=== PATIENT | female | born 1985 | race Caucasian/White ===

== ENCOUNTER 2017-01-10 05:01 | Inpatient (IN) | payer BC ==
[2017-01-10] MEDS ORDERED: Terbutaline 1 MG/ML SDV SUBCUT PRN (05:16)
[2017-01-10] MEDS ORDERED: Nalbuphine 10 MG/1 ML Vial IVPUSH PRN (05:16)
[2017-01-10] MEDS ORDERED: Misoprostol 200 MCG Tab PO PRN (05:16)
[2017-01-10] MEDS ORDERED: Butorphanol 1 MG/ML SDV IVPUSH PRN (05:16)
[2017-01-10] MEDS ORDERED: Methylergonovine 0.2 MG/1 ML Amp IM PRN ×2 (05:16→17:04)
[2017-01-10] MEDS ORDERED: Lidocaine 1% 50 ML MDV INJECT PRN (05:16)
[2017-01-10] MEDS ORDERED: Carboprost Tromethamine 250 MCG/1 ML Amp IM PRN (05:16)
[2017-01-10] MEDS ORDERED: Sodium Chloride 0.9% 2.5 ML Syringe FLUSH PRN (05:16)
[2017-01-10] MEDS ORDERED: Water For Irrigation,Sterile 1,000 ML Container IRR PRN (05:16)
[2017-01-10] MEDS ORDERED: Sodium Chloride 0.9% 10 ML Syringe FLUSH PRN (05:16)
[2017-01-10] MEDS ORDERED: Hydrocortisone Sodium Succinate 100 MG/2 ML SDV IVPUSH PRN (05:20)
[2017-01-10] MEDS ORDERED: Ampicillin 2 GM in Sodium Chloride 0.9% 100 ML IV ONE (05:30)
[2017-01-10] MEDS ORDERED: Oxytocin/Lactated Ringers 30 UNIT/500 ML BAG IV SCH ×2 (05:30)
[2017-01-10] MEDS: Lactated Ringers 1,000 ML IV SCH ×3 (05:50→14:53)
[2017-01-10] MEDS ORDERED: Ampicillin 1 GM in Sodium Chloride 0.9% 50 ML IV SCH (09:30)
[2017-01-10] MEDS: Ampicillin 1 GM in Sodium Chloride 0.9% 50 ML IV SCH ×2 (11:42→15:37)
--- NOTE | 2017-01-10 14:04 | PCM.PREANE ---
Preanesthetic Assessment - Anesthesia/Transfusion/Family Hx Anesthesia History: Prior Anesthesia Without Reaction Transfusion History: No Prior Transfusion(s) - Review of Systems General: No Symptoms Pulmonary: No Symptoms Cardiovascular: No Symptoms Gastrointestinal: No symptoms Neurological: No Symptoms Other: Reports: None - Physical Assessment Height: 5 ft 4 in Weight: 72.575 kg ASA Class: 2 Mental Status: Alert & Oriented x3 Airway Class: Mallampati = 2 Dentition: Reports: Normal Dentition Thyro-Mental Finger Breadths: 3 Mouth Opening Finger Breadths: 3 ROM/Head Extension: Full Lungs: Clear to auscultation, Normal respiratory effort Cardiovascular: Regular Rate, Regular Rhythm - Lab Values: Laboratory Last Values WBC 10.35 K/uL (4.0-11.0) 01/10/17 05:40 RBC 3.84 M/uL (4.30-5.90) L 01/10/17 05:40 Hgb 12.4 g/dL (12.0-16.0) 01/10/17 05:40 Hct 36.4 % (36.0-46.0) 01/10/17 05:40 MCV 94.8 fL (80.0-98.0) 01/10/17 05:40 MCH 32.3 pg (27.0-32.0) H 01/10/17 05:40 MCHC 34.1 g/dL (31.0-37.0) 01/10/17 05:40 RDW Std Deviation 46.2 fl (28.0-62.0) 01/10/17 05:40 RDW Coeff of Mery 13 % (11.0-15.0) 01/10/17 05:40 Plt Count 194 K/uL (150-400) 01/10/17 05:40 MPV 10.50 fL (7.40-12.00) 01/10/17 05:40 Nucleated RBC % 0.0 /100WBC 01/10/17 05:40 Nucleated RBCs # 0 K/uL 01/10/17 05:40 Blood Type O POSITIVE 01/10/17 05:40 Antibody Screen NEGATIVE 01/10/17 05:40 Crossmatch See Detail 01/10/17 05:40 - Allergies Allergies/Adverse Reactions: Allergies Allergy/AdvReac Type Severity Reaction Status Date / Time soy Allergy Itching Verified 01/10/17 05:11 - Acknowledgements Anesthesia Type Planned: Epidural Pt an Appropriate Candidate for the Planned Anesthesia: Yes Alternatives and Risks of Anesthesia Discussed w Pt/Guardian: Yes Pt/Guardian Understands and Agrees with Anesthesia Plan: Yes PreAnesthesia Questionnaire HEENT History: Reports: None Cardiovascular History: Reports: None Respiratory History: Reports: Asthma Gastrointestinal History: Reports: Irritable bowel syndrome, Other (see below) Other Gastrointestinal History: digestive ulcers Genitourinary History: Reports: Pyelonephritis MURAL PAINTER History: Reports: , Spontaneous (Multiple) : 21 Para: 3 Musculoskeletal History: Reports: Fracture, Other (see below) Other Musculoskeletal History: bilateral foot and rib fracture Neurological History: Reports: None Psychiatric History: Reports: None Endocrine/Metabolic History: Reports: None 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 Immunologic History: Reports: Other (see below) Other Immunologic History: LUPUS Oncologic (Cancer) History: Reports: None Dermatologic History: Reports: Other (see below) Other Dermatologic History: rash from lupus on upper face and chest - Infectious Disease History Infectious Disease History: Reports: None - Past Surgical History Female Surgical History: Reports: D&C - Past Imaging History Past Imaging History: Reports: None - HOME MEDS Home Medications: Home Meds Albuterol [Ventolin HFA] 8 gm INH BID 01/10/17 [History] Fluticasone/Salmeterol [Advair Diskus 250-50] 1 puff INH BID 01/10/17 [History] Triamcinolone Acetonide [Triamcinolone Acetonide 0.1% Oint] 15 gm TOP BID [History] predniSONE [Prednisone] 5 mg PO BID 01/10/17 [History] - CURRENT (IN HOUSE) MEDS Current Meds: Current Medications Carboprost Tromethamine (Hemabate Ds) 250 mcg IM ASDIRECTED PRN PRN Reason: Post Hemorrhage Hydrocortisone Sodium Succinate (Solu-Cortef) 100 mg IVPUSH ONETIME PRN PRN Reason: Other Last Admin: 01/10/17 12:51 Dose: 100 mg Lactated Ringer's (Ringers, Lactated) 1,000 mls @ 150 mls/hr IV ASDIRECTED ELIZABETH Last Admin: 01/10/17 11:16 Dose: 150 mls/hr Oxytocin/Lactated Ringer's (Pitocin In Lr 30 Units/500 Ml) 30 unit in 500 mls @ 2 mls/hr IV TITRATE ELIZABETH; 2 MUNITS/MIN PRN Reason: Protocol Last Titration: 01/10/17 12:12 Dose: 18 munits/min, 18 mls/hr Ampicillin Sodium 1 gm/ Sodium (Chloride) 50 mls @ 100 mls/hr IV Q4H ELIZABETH Last Admin: 01/10/17 11:42 Dose: 100 mls/hr Lidocaine HCl (Xylocaine 1%) 50 ml INJECT .ONCE PRN PRN Reason: Laceration repair Methylergonovine Maleate (Methergine) 0.2 mg IM ASDIRECTED PRN PRN Reason: Post Hemorrhage Misoprostol (Cytotec) 200 mcg PO .ONCE PRN PRN Reason: Post Hemorrhage Sodium Chloride (Saline Flush) 10 ml FLUSH ASDIRECTED PRN PRN Reason: Keep Vein Open Sodium Chloride (Saline Flush) 2.5 ml FLUSH ASDIRECTED PRN PRN Reason: Keep Vein Open Sterile Water (Sterile Water For Irrigation) 1,000 ml IRR ASDIRECTED PRN PRN Reason: delivery Terbutaline Sulfate (Brethine) 0.25 mg SUBCUT ASDIRECTED PRN PRN Reason: Tacysystole Discontinued Medications Butorphanol Tartrate (Stadol) 1 mg IVPUSH Q1H PRN PRN Reason: Pain Stop: 01/10/17 06:17 Ampicillin Sodium 2 gm/ Sodium (Chloride) 100 mls @ 200 mls/hr IV ONETIME ONE Stop: 01/10/17 05:59 Last Admin: 01/10/17 07:36 Dose: 200 mls/hr Ampicillin Sodium 1 gm/ Sodium (Chloride) 50 mls @ 100 mls/hr IV Q4H ELIZABETH Oxytocin/Lactated Ringer's (Pitocin In Lr 30 Units/500 Ml) 30 unit in 500 mls @ 500 mls/hr IV TITRATE ELIZABETH PRN Reason: 500 MUNITS/MIN Stop: 01/10/17 06:29 Nalbuphine HCl (Nubain) 10 mg IVPUSH Q1H PRN PRN Reason: Pain (severe 7-10) Stop: 01/10/17 06:17
[2017-01-10] MEDS ORDERED: fentaNYL 100 MCG/2 ML SDV ONE (14:05)
[2017-01-10] MEDS ORDERED: Ropivacaine HCl/PF 100 ML ONE (14:05)
[2017-01-10] MEDS ORDERED: Docusate Sodium 100 MG Cap PO PRN (17:04)
[2017-01-10] MEDS ORDERED: oxyCODONE 5 MG Tab PO PRN (17:04)
[2017-01-10] MEDS ORDERED: Benzocaine/Menthol 20%-0.5% Spray 78 GM Cannister TOP PRN (17:04)
[2017-01-10] MEDS ORDERED: Bisacodyl 10 MG Supp RECTAL PRN (17:04)
[2017-01-10] MEDS ORDERED: Witch Hazel Medicated Pads 40/Jar TOP PRN (17:04)
[2017-01-10] MEDS ORDERED: Acetaminophen 500 MG Tab PO PRN (17:04)
[2017-01-10] MEDS ORDERED: Lanolin 100% Cream 7 GM Tube TOP PRN (17:04)
[2017-01-10] MEDS ORDERED: Albuterol 8 GM Inhaler INH PRN (21:00)
[2017-01-10] MEDS ORDERED: Triamcinolone Acetonide 0.1% Crm 15 GM Tube TOP PRN (21:00)
[2017-01-10] MEDS: predniSONE 5 MG Tab PO SCH (21:12)
--- NOTE | 2017-01-10 21:51 | OR ---
SURGEON: Cherelle Randolph M.D. DATE OF PROCEDURE: 01/10/2017 PREOPERATIVE DIAGNOSIS: A 39-week intrauterine with lupus, asthma, and group B strep positive, on chronic steroids. POSTOPERATIVE DIAGNOSIS: A 39-week intrauterine with lupus, asthma, and group B strep positive, on chronic steroids. PROCEDURE: Pitocin induction of labor, artificial rupture of membranes with group B strep prophylaxis. Term spontaneous vaginal delivery. Stress dose steroids. ANESTHESIA: Epidural. ESTIMATED BLOOD LOSS: Less than 300 mL. FINDINGS: Liveborn female, score 9 and 9, weighing 3300 g. Placenta spontaneous, Schultze intact, with 3 vessels. Perineum intact. COMPLICATIONS: None known. DISPOSITION: Mother and baby in LDRP in good condition. BRIEF COURSE: This is a 31-year-old female. She presents at 39 weeks' gestation having been monitored with weekly testing due to lupus. She is currently on prednisone 5 mg b.i.d. She is followed in conjunction with Perinatology as well as Rheumatology. Recommendation was to proceed with induction of labor at 39 weeks' gestation. Plan is to proceed with stress dose steroids. She was admitted to Labor and Delivery. Pitocin was initiated. Ampicillin was initiated for group B strep prophylaxis. After her 2nd dose of ampicillin, artificial rupture of membranes was performed. She was 3 cm, 50%, minus 2 station. At this point, 100 mg of hydrocortisone was given IV. She received an epidural for pain control. She progressed to complete. DESCRIPTION OF PROCEDURE: With the patient in dorsal lithotomy position, under adequate epidural analgesia, she pushed over a 10-minute time period to a 5+ station, at which time the head was delivered spontaneously and atraumatically over the perineum with support with subsequent delivery of the 's shoulders and body without any difficulty. The was bulb suctioned by nose and mouth, and after the cord had ceased to pulsate, it was doubly clamped and cut. The infant was a liveborn female, score 9 and 9, weighing 3300 g. Cord blood was collected for cord ABGs as well as routine cord blood sampling. The Pitocin was initiated after delivery of the infant to assist with delivery of the placenta which was delivered spontaneously, Schultze intact with 3 vessels. Upon inspection of the pelvis and perineum, there were no periurethral, vaginal sidewall, cervical, rectal, or perineal lacerations. EBL was less than 300 mL. There were no known complications. Sponge, needle, and instrument counts were correct. RALPH MARIE /[id number]
--- NOTE | 2017-01-10 23:56 | PCM48HPAN ---
Post Anesthesia Note - EVALUATION WITHIN 48HRS OF ANESTHETIC Vital Signs in Normal Range: Yes Patient Participated in Evaluation: Yes Respiratory Function Stable: Yes Airway Patent: Yes Cardiovascular Function Stable: Yes Hydration Status Stable: Yes Pain Control Satisfactory: Yes Nausea and Vomiting Control Satisfactory: Yes Mental Status Recovered: Yes - COMMENTS/OBSERVATIONS Free Text/Narrative:: +Vascular placement was noted on first attempt. Epidural was removed immediately prior to any dosing (only test dose was given). Currently pt stable without any apparent complications.
[2017-01-11] MEDS: Ibuprofen 800 MG Tab PO PRN ×3 (00:57→17:56)
--- NOTE | 2017-01-11 07:18 | PCM.PNPP ---
- General Info Date of Service: 01/11/17 Functional Status: Reports: pain controlled, tolerating diet, ambulating, urinating - Review of Systems General: Reports: No Symptoms HEENT: Reports: no symptoms Pulmonary: Reports: no symptoms Cardiovascular: Reports: No Symptoms Gastrointestinal: Reports: No symptoms Genitourinary: Reports: no symptoms Musculoskeletal: Reports: no symptoms Skin: Reports: no symptoms Neurological: Reports: No Symptoms Psychiatric: Reports: no symptoms - General Info Date of Service: 01/11/17 - Patient Data Vital Signs - most recent: Last Vital Signs Temp 36.9 C 01/11/17 05:17 Pulse 76 01/11/17 05:17 Resp 17 01/11/17 05:17 BP 119/62 01/11/17 05:17 Pulse Ox 98 01/11/17 05:17 Weight - most recent: 72.575 kg Lab Results - last 24 hrs: Laboratory Results - last 24 hr 01/10/17 01/10/17 01/10/17 Range/Units 05:40 05:40 05:40 Hgb (12.0-16.0) g/dL Hct (36.0-46.0) % Blood Type O POSITIVE Cancelled Antibody Screen NEGATIVE Cancelled Crossmatch See Detail See Detail 01/11/17 Range/Units 04:13 Hgb 11.5 L (12.0-16.0) g/dL Hct 33.8 L (36.0-46.0) % Blood Type Antibody Screen Crossmatch Med Orders - Current: Current Medications Acetaminophen (Tylenol Extra Strength) 1,000 mg PO Q4H PRN PRN Reason: Pain Benzocaine/Menthol (Dermoplast Pain Relief 20%-0.5% [place]) 78 gm TOP ASDIRECTED PRN PRN Reason: Perineal Comfort Measure Last Admin: 01/10/17 20:18 Dose: 1 canister Bisacodyl (Dulcolax) 10 mg RECTAL .ONCE PRN PRN Reason: Constipation Docusate Sodium (Colace) 100 mg PO BID PRN PRN Reason: Constipation Emollient Ointment (Lansinoh Hpa) 0 gm TOP ASDIRECTED PRN PRN Reason: Sore Nipples Ibuprofen (Motrin) 800 mg PO Q6H PRN PRN Reason: Pain Last Admin: 01/11/17 00:57 Dose: 800 mg Methylergonovine Maleate (Methergine) 0.2 mg IM .ONCE PRN PRN Reason: Excessive Vaginal Bleeding Non-Formulary Medication (Albuterol [Ventolin Hfa]) 8 gm INH BID ELIZABETH Non-Formulary Medication (Triamcinolone Acetonide) 15 gm TOP BID ELIZABETH Oxycodone HCl (Oxycodone) 5 mg PO Q2H PRN PRN Reason: Pain Prednisone (Prednisone) 5 mg PO BID [facility] Last Admin: 01/10/17 21:12 Dose: 5 mg Fluticasone/Salmeterol (Advair Diskus 250-50) 1 puff INH BID [facility] Last Admin: 01/10/17 21:12 Dose: Not Given Witch Caryl (Tucks) 1 pad TOP ASDIRECTED PRN PRN Reason: comfort care Last Admin: 01/10/17 20:17 Dose: 1 tub Discontinued Medications Butorphanol Tartrate (Stadol) 1 mg IVPUSH Q1H PRN PRN Reason: Pain Stop: 01/10/17 06:17 Carboprost Tromethamine (Hemabate Ds) 250 mcg IM ASDIRECTED PRN PRN Reason: Post Hemorrhage Fentanyl (Sublimaze) Confirm Administered Dose 100 mcg .ROUTE .STK-MED ONE Stop: 01/10/17 14:06 Last Admin: 01/10/17 19:58 Dose: Not Given Hydrocortisone Sodium Succinate (Solu-Cortef) 100 mg IVPUSH ONETIME PRN PRN Reason: Other Last Admin: 01/10/17 12:51 Dose: 100 mg Ampicillin Sodium 2 gm/ Sodium (Chloride) 100 mls @ 200 mls/hr IV ONETIME ONE Stop: 01/10/17 05:59 Last Admin: 01/10/17 07:36 Dose: 200 mls/hr Ampicillin Sodium 1 gm/ Sodium (Chloride) 50 mls @ 100 mls/hr IV Q4H [facility] Last Admin: 01/10/17 19:57 Dose: Not Given Lactated Ringer's (Ringers, Lactated) 1,000 mls @ 150 mls/hr IV ASDIRECTED [facility] Last Admin: 01/10/17 14:53 Dose: 150 mls/hr Oxytocin/Lactated Ringer's (Pitocin In Lr 30 Units/500 Ml) 30 unit in 500 mls @ 500 mls/hr IV TITRATE [facility] PRN Reason: 500 MUNITS/MIN Stop: 01/10/17 06:29 Last Admin: 01/10/17 19:56 Dose: Not Given Oxytocin/Lactated Ringer's (Pitocin In Lr 30 Units/500 Ml) 30 unit in 500 mls @ 2 mls/hr IV TITRATE ELIZABETH; 2 MUNITS/MIN PRN Reason: Protocol Last Titration: 01/10/17 16:47 Dose: 500 munits/min, 500 mls/hr Ampicillin Sodium 1 gm/ Sodium (Chloride) 50 mls @ 100 mls/hr IV Q4H ELIZABETH Last Admin: 01/10/17 15:37 Dose: 100 mls/hr Ropivacaine (Naropin 0.2%) Confirm Administered Dose 100 mls @ as directed .ROUTE .[facility]-MED ONE Stop: 01/10/17 14:06 Last Admin: 01/10/17 19:57 Dose: Not Given Lidocaine HCl (Xylocaine 1%) 50 ml INJECT .ONCE PRN PRN Reason: Laceration repair Methylergonovine Maleate (Methergine) 0.2 mg IM ASDIRECTED PRN PRN Reason: Post Hemorrhage Misoprostol (Cytotec) 200 mcg PO .ONCE PRN PRN Reason: Post Hemorrhage Nalbuphine HCl (Nubain) 10 mg IVPUSH Q1H PRN PRN Reason: Pain (severe 7-10) Stop: 01/10/17 06:17 Sodium Chloride (Saline Flush) 10 ml FLUSH ASDIRECTED PRN PRN Reason: Keep Vein Open Sodium Chloride (Saline Flush) 2.5 ml FLUSH ASDIRECTED PRN PRN Reason: Keep Vein Open Sterile Water (Sterile Water For Irrigation) 1,000 ml IRR ASDIRECTED PRN PRN Reason: delivery Terbutaline Sulfate (Brethine) 0.25 mg SUBCUT ASDIRECTED PRN PRN Reason: Tacysystole - Interaction Disposition, : Gregory in Room with Family Infant Feeding: Breastfed Infant; Nursed Well Support Person: Significant Other - Recovery Exam Fundal Tone: Firm Fundal Level: 1 Fingerbreadths Below Umbilicus Fundal Placement: Midline Lochia Amount: Scant Lochia Color: Rubra/Red Perineum Description: Intact, Minimal Bruising/Swelling - Exam General: alert, oriented HEENT: Pupils equal Neck: supple Abdomen: soft, no tenderness, no distension Extremities: no edema Skin: warm, dry, intact Neurological: no new focal deficit Psy/Mental Status: alert, normal affect, normal mood - Problem List & Annotations (1) Vaginal delivery SNOMED Code(s): 152202298 Code(s): O80 - ENCOUNTER FOR FULL-TERM UNCOMPLICATED DELIVERY Status: Acute Current Visit: Yes - Problem List Review Problem List Initiated/Reviewed/Updated: Yes - My Orders Last 24 Hours: My Active Orders 01/10/17 17:04 Patient Status [ADT] Routine May Shower [RC] ASDIRECTED Up ad Gely [RC] ASDIRECTED Vital Signs [RC] PER UNIT ROUTINE Acetaminophen [Tylenol Extra Strength] 1,000 mg PO Q4H PRN Benzocaine/Menthol [Dermoplast Pain Relief 20%-0.5% [place]] 78 gm TOP ASDIRECTED PRN Bisacodyl [Dulcolax] 10 mg RECTAL .ONCE PRN Docusate Sodium [Colace] 100 mg PO BID PRN Ibuprofen [Motrin] 800 mg PO Q6H PRN Lanolin [Lansinoh HPA] See Dose Instructions TOP ASDIRECTED PRN Methylergonovine [Methergine] 0.2 mg IM .ONCE PRN Witch Caryl [Tucks] 1 pad TOP ASDIRECTED PRN oxyCODONE 5 mg PO Q2H PRN Assess Lochia [WOMSER] Per Unit Routine Assess Uterine Involution [WOMSER] Per Unit Routine Peripheral IV Discontinue [OM.PC] Routine Resuscitation Status Routine 01/10/17 17:05 Perineal Care [OM.PC] Per Unit Routine 01/10/17 21:00 Albuterol [Ventolin HFA] 8 gm INH BID Fluticasone/Salmeterol [Advair Diskus 250-50] 1 puff INH BID Triamcinolone Acetonide 15 gm TOP BID predniSONE 5 mg PO BID 01/10/17 Dinner Regular Diet [DIET] - Assessment Assessment:: PPD#1 after , stable, minimal lochia, would like to go home later today. Reviewed dacrocystocele appears to be resolved, but she should notify pediatric provider to evaluate tear ducts. Copy of ultrasound provided. - Plan Plan:: Discharge instructions provided
[2017-01-11] MEDS: predniSONE 5 MG Tab PO SCH (08:18)
[2017-01-11 17:36] VITALS: BP 107/68
== END 2017-01-11 18:55 | disposition home or self-care (01) | DRG 560 ==
LOC: MW.OBCHECK 05:01 → MW.OB 05:01 → MW.OBCHECK 05:16 → MW.OB 05:16 → OBSVTOIN 16:44
PROVIDERS: ADMIT Obstetrics & Gynecology; ATTEND Obstetrics & Gynecology
PROC: 10E0XZZ Delivery of Products of Conception, External Approach (ICD-10-PCS; principal; 2017-01-10)
PROC: 10907ZC Drainage of Amniotic Fluid, Therapeutic from Products of Conception, Via Natural or Artificial Opening (ICD-10-PCS; 2017-01-10)
PROC: 3E033VJ Introduction of Other Hormone into Peripheral Vein, Percutaneous Approach (ICD-10-PCS; 2017-01-10)
DX: O80 Encounter for full-term uncomplicated delivery (principal); M32.9 Systemic lupus erythematosus, unspecified; J45.909 Unspecified asthma, uncomplicated; Z3A.39 39 weeks gestation of pregnancy; Z37.0 Single live birth; Z22.330 Carrier of Group B streptococcus; Z79.52 Long term (current) use of systemic steroids
CPT/HCPCS: 01967; 36415; 51703; 59025; 85014; 85018; 85027; 86850; 86900; 86901; 86902; 86920; 86921; 86922; A9270-GY; J0290; J1720; J7030; J7050; J7120

== ENCOUNTER 2017-03-15 21:05 | Emergency (ER) | payer BC ==
--- NOTE | 2017-03-15 21:42 | EDM.PDOC ---
ED HPI GENERAL MEDICAL PROBLEM - General Chief Complaint: TERRAZZO JOURNEYMAN Problem Stated Complaint: VAGINAL BLEEDING Time Seen by Provider: 03/15/17 21:40 - History of Present Illness INITIAL COMMENTS - FREE TEXT/NARRATIVE: HISTORY AND PHYSICAL: History of present illness: Patient is 31-year-old female is proximally 2 months presents with concern of vaginal bleeding spending excessive she's been using his upwards of 14 pads per day she is directed by the TERRAZZO JOURNEYMAN he did present to the emergency room. There is been no dizziness chest pain shortness breath or other concern Review of systems: As per history of present illness and below otherwise all systems reviewed and negative. Past medical history: As per history of present illness and as reviewed below otherwise noncontributory. Surgical history: As per history of present illness and as reviewed below otherwise noncontributory. Social history: No reported history of drug or alcohol abuse. Family history: As per history of present illness and as reviewed below otherwise noncontributory. Physical exam: HEENT: Atraumatic, normocephalic, pupils reactive, negative for conjunctival pallor or scleral icterus, mucous membranes moist, throat clear, neck supple, nontender, trachea midline. Lungs: Clear to auscultation, breath sounds equal bilaterally, chest nontender. Heart: S1S2, regular, negative for clicks, rubs, or JVD. Abdomen: Soft, nondistended, nontender. Negative for masses or hepatosplenomegaly. Negative for costovertebral tenderness. Pelvis: Stable nontender. Genitourinary: Deferred. Rectal: Deferred. Extremities: Atraumatic, negative for cords or calf pain. Neurovascular unremarkable. Neuro: Awake, alert, oriented. Cranial nerves II through XII unremarkable. Cerebellum unremarkable. Motor and sensory unremarkable throughout. Exam nonfocal. Diagnostics: CBC CMP PT/INR hCG Therapeutics: None Impression: #1 vaginal bleeding Definitive disposition and diagnosis as appropriate pending reevaluation and review of above. - Related Data Allergies Allergy/AdvReac Type Severity Reaction Status Date / Time soy Allergy Itching Verified 03/15/17 21:23 Home Meds: Home Meds Albuterol [Ventolin HFA] 8 gm INH BID 01/10/17 [History] Fluticasone/Salmeterol [Advair Diskus 250-50] 1 puff INH BID 01/10/17 [History] Triamcinolone Acetonide [Triamcinolone Acetonide 0.1% Oint] 15 gm TOP BID [History] predniSONE [Prednisone] 5 mg PO BID 01/10/17 [History] Past Medical History HEENT History: Reports: None Cardiovascular History: Reports: None Respiratory History: Reports: Asthma Gastrointestinal History: Reports: Irritable Bowel Syndrome, Other (See Below) Other Gastrointestinal History: digestive ulcers Genitourinary History: Reports: Pyelonephritis TERRAZZO JOURNEYMAN History: Reports: , Spontaneous Musculoskeletal History: Reports: Fracture, Other (See Below) Other Musculoskeletal History: bilateral foot and rib fracture Neurological History: Reports: None Psychiatric History: Reports: None Endocrine/Metabolic History: Reports: None 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 Immunologic History: Reports: Other (See Below) Other Immunologic History: LUPUS Oncologic (Cancer) History: Reports: None Dermatologic History: Reports: Other (See Below) Other Dermatologic History: rash from lupus on upper face and chest - Infectious Disease History Infectious Disease History: Reports: None - Past Surgical History Female Surgical History: Reports: D&C - Past Imaging History Past Imaging History: Reports: None Social & Family History - Family History Family Medical History: Noncontributory - Tobacco Use Smoking Status *Q: Never Smoker - Recreational Drug Use Recreational Drug Use: No ED ROS GENERAL - Review of Systems Review Of Systems: ROS reveals no pertinent complaints other than HPI. ED EXAM, GENERAL - Physical Exam Exam: See Below (See dictation) Course - Vital Signs Last Recorded V/S: Last Vital Signs Temp 36.4 C 03/15/17 21:30 Pulse 74 03/15/17 21:30 Resp 14 03/15/17 21:30 BP 126/76 03/15/17 21:30 Pulse Ox 98 03/15/17 21:30 - Orders/Labs/Meds Labs: Laboratory Tests 03/15/17 03/15/17 03/15/17 Range/Units 21:58 21:58 21:58 WBC 8.45 (4.0-11.0) K/uL RBC 4.35 (4.30-5.90) M/uL Hgb 13.8 (12.0-16.0) g/dL Hct 40.7 (36.0-46.0) % MCV 93.6 (80.0-98.0) fL MCH 31.7 (27.0-32.0) pg MCHC 33.9 (31.0-37.0) g/dL RDW Std Deviation 45.8 (28.0-62.0) fl RDW Coeff of Mery 13 (11.0-15.0) % Plt Count 207 (150-400) K/uL MPV 9.90 (7.40-12.00) fL Neut % (Auto) 68.8 (48.0-80.0) % Lymph % (Auto) 22.2 (16.0-40.0) % [place] % (Auto) 8.0 (0.0-15.0) % Eos % (Auto) 0.6 (0.0-7.0) % Baso % (Auto) 0.4 (0.0-1.5) % Neut # (Auto) 5.8 H (1.4-5.7) K/uL Lymph # (Auto) 1.9 (0.6-2.4) K/uL [place] # (Auto) 0.7 (0.0-0.8) K/uL Eos # (Auto) 0.1 (0.0-0.7) K/uL Baso # (Auto) 0.0 (0.0-0.1) K/uL Nucleated RBC % 0.0 /100WBC Nucleated RBCs # 0 K/uL INR 1.00 (0.86-1.11) Sodium 140 (136-146) mmol/L Potassium 4.1 (3.5-5.1) mmol/L Chloride 107 (98-110) mmol/L Carbon Dioxide 24 (21-31) mmol/L BUN 17 (6.0-23.0) mg/dL Creatinine 0.9 (0.6-1.5) mg/dL Est Cr Clr Drug Dosing 80.22 mL/min Estimated GFR (MDRD) > 60.0 ml/min Glucose 87 (60-110) mg/dL Calcium 9.3 (8.8-10.8) mg/dL Total Bilirubin 0.5 (0.1-1.5) mg/dL AST 20 (5-40) IU/L ALT 19 (8-54) IU/L Alkaline Phosphatase 74 (40-150) Total Protein 7.4 (6.0-8.0) g/dL Albumin 4.4 (3.5-5.0) g/dL Globulin 3.0 (2.0-3.5) g/dL Albumin/Globulin Ratio 1.5 (1.3-2.8) HCG, Qual (NEG) 03/15/17 Range/Units 21:58 WBC (4.0-11.0) K/uL RBC (4.30-5.90) M/uL Hgb (12.0-16.0) g/dL Hct (36.0-46.0) % MCV (80.0-98.0) fL MCH (27.0-32.0) pg MCHC (31.0-37.0) g/dL RDW Std Deviation (28.0-62.0) fl RDW Coeff of Mery (11.0-15.0) % Plt Count (150-400) K/uL MPV (7.40-12.00) fL Neut % (Auto) (48.0-80.0) % Lymph % (Auto) (16.0-40.0) % [place] % (Auto) (0.0-15.0) % Eos % (Auto) (0.0-7.0) % Baso % (Auto) (0.0-1.5) % Neut # (Auto) (1.4-5.7) K/uL Lymph # (Auto) (0.6-2.4) K/uL [place] # (Auto) (0.0-0.8) K/uL Eos # (Auto) (0.0-0.7) K/uL Baso # (Auto) (0.0-0.1) K/uL Nucleated RBC % /100WBC Nucleated RBCs # K/uL INR (0.86-1.11) Sodium (136-146) mmol/L Potassium (3.5-5.1) mmol/L Chloride (98-110) mmol/L Carbon Dioxide (21-31) mmol/L BUN (6.0-23.0) mg/dL Creatinine (0.6-1.5) mg/dL Est Cr Clr Drug Dosing mL/min Estimated GFR (MDRD) ml/min Glucose (60-110) mg/dL Calcium (8.8-10.8) mg/dL Total Bilirubin (0.1-1.5) mg/dL AST (5-40) IU/L ALT (8-54) IU/L Alkaline Phosphatase (40-150) Total Protein (6.0-8.0) g/dL Albumin (3.5-5.0) g/dL Globulin (2.0-3.5) g/dL Albumin/Globulin Ratio (1.3-2.8) HCG, Qual NEGATIVE (NEG) Departure - Departure Time of Disposition: 23:06 Disposition: Home, Self-Care 01 Condition: Good Clinical Impression: Vaginal bleeding - Discharge Information Forms: ED Department Discharge Additional Instructions: The following information is given to patients seen in the emergency department who are being discharged to home. This information is to outline your options for follow-up care. We provide all patients seen in our emergency department with a follow-up referral. The need for follow-up, as well as the timing and circumstances, are variable depending upon the specifics of your emergency department visit. If you don't have a primary care physician on staff, we will provide you with a referral. We always advise you to contact your personal physician following an emergency department visit to inform them of the circumstance of the visit and for follow-up with them and/or the need for any referrals to a consulting specialist. The emergency department will also refer you to a specialist when appropriate. This referral assures that you have the opportunity for followup care with a specialist. All of these measure are taken in an effort to provide you with optimal care, which includes your followup. Under all circumstances we always encourage you to contact your private physician who remains a resource for coordinating your care. When calling for followup care, please make the office aware that this follow-up is from your recent emergency room visit. If for any reason you are refused follow-up, please contact the [facility] emergency department at and asked to speak to the emergency department charge nurse. Follow-up TOXICOLOGY SUPERVISOR/private medical doctor 24-48 hours return as needed as discussed
[2017-03-15 22:25] LABS: CHLORIDE,CL 107 mmol/L (98-110); SODIUM,NA 140 mmol/L (136-146)
[2017-03-15 23:20] VITALS: BP 122/78
== END 2017-03-15 23:26 | disposition home or self-care (01) ==
LOC: MW.ED 21:05
DX: N93.9 Abnormal uterine and vaginal bleeding, unspecified (principal); J45.909 Unspecified asthma, uncomplicated; M32.9 Systemic lupus erythematosus, unspecified; Z91.018 Allergy to other foods
CPT/HCPCS: 36415; 80053; 84703; 85025; 85610; 99282; 99284

== ENCOUNTER 2018-01-10 09:47 | Day surgery (SDC) | payer MEDICAID ==
[~2018-01-10 09:47] MED LIST: Lactated Ringers 1,000 ML IV SCH; Sodium Chloride 0.9% 10 ML Syringe FLUSH PRN; Sodium Chloride 0.9% 2.5 ML Syringe FLUSH PRN
[2018-01-10] MEDS ORDERED: Lidocaine 2% 5 ML SDV ONE ×2 (11:41→11:44)
[2018-01-10] MEDS ORDERED: Propofol 200 MG/20 ML SDV ONE (11:41)
[2018-01-10] MEDS ORDERED: Midazolam 1 MG/ML 2 ML SDV ONE (11:41)
[2018-01-10] MEDS ORDERED: Ondansetron 4 MG/2 ML SDV ONE ×2 (11:41→11:44)
[2018-01-10] MEDS ORDERED: fentaNYL 250 MCG/5 ML SDV ONE (11:42)
== END 2018-01-10 10:50 | disposition home or self-care (01) ==
LOC: MW.SDS 09:47
PROVIDERS: ATTEND Obstetrics & Gynecology
DX: Z53.8 Procedure and treatment not carried out for other reasons (principal)
CPT/HCPCS: 36415; 85027; 86850; 86900; 86901; J2250; J2405; J2704; J3010; J7120

== ENCOUNTER 2018-01-13 10:42 | Day surgery (SDC) | payer MEDICAID ==
[~2018-01-13 10:42] MED LIST changes: -Lactated Ringers 1,000 ML IV SCH; +Lidocaine 2% 5 ML SDV ONE; +Midazolam 1 MG/ML 2 ML SDV ONE; +Propofol 200 MG/20 ML SDV ONE; -Sodium Chloride 0.9% 10 ML Syringe FLUSH PRN; -Sodium Chloride 0.9% 2.5 ML Syringe FLUSH PRN; +fentaNYL 100 MCG/2 ML SDV ONE
--- NOTE | 2018-01-13 11:35 | PCM.PREANE ---
Preanesthetic Assessment - Anesthesia/Transfusion/Family Hx Anesthesia History: Prior Anesthesia Without Reaction Family History of Anesthesia Reaction: No Transfusion History: No Prior Transfusion(s) - Review of Systems General: No Symptoms Pulmonary: No Symptoms Cardiovascular: No Symptoms Gastrointestinal: No Symptoms Neurological: No Symptoms - Physical Assessment NPO Status Date: 01/13/18 NPO Status Time: 06:00 O2 Sat by Pulse Oximetry: 97 Respiratory Rate: 16 Vital Signs: Last Vital Signs Temp 37.0 C 01/13/18 11:10 Pulse 55 L 01/13/18 11:10 Resp 16 01/13/18 11:10 BP 118/72 01/13/18 11:10 Pulse Ox 97 01/13/18 11:10 Height: 1.68 m Weight: 64.864 kg ASA Class: 2 Mental Status: Alert & Oriented x3 Airway Class: Mallampati = 1 ROM/Head Extension: Full Lungs: Clear to Auscultation, Normal Respiratory Effort Cardiovascular: Regular Rate, Regular Rhythm - Lab Values: Laboratory Last Values WBC 7.40 K/uL (4.0-11.0) 01/10/18 10:20 RBC 4.03 M/uL (4.30-5.90) L 01/10/18 10:20 Hgb 12.6 g/dL (12.0-16.0) 01/10/18 10:20 Hct 36.9 % (36.0-46.0) 01/10/18 10:20 MCV 91.6 fL (80.0-98.0) 01/10/18 10:20 MCH 31.3 pg (27.0-32.0) 01/10/18 10:20 MCHC 34.1 g/dL (31.0-37.0) 01/10/18 10:20 RDW Std Deviation 45.5 fl (28.0-62.0) 01/10/18 10:20 RDW Coeff of Mery 14 % (11.0-15.0) 01/10/18 10:20 Plt Count 185 K/uL (150-400) 01/10/18 10:20 MPV 9.50 fL (7.40-12.00) 01/10/18 10:20 Nucleated RBC % 0.0 /100WBC 01/10/18 10:20 Nucleated RBCs # 0 K/uL 01/10/18 10:20 Blood Type O POSITIVE 01/10/18 10:20 Antibody Screen NEGATIVE 01/10/18 10:20 Crossmatch See Detail 01/10/18 10:20 - Allergies Allergies/Adverse Reactions: Allergies Allergy/AdvReac Type Severity Reaction Status Date / Time soy protein Allergy Swelling Uncoded 01/09/18 13:35 - Acknowledgements Anesthesia Type Planned: General Anesthesia Pt an Appropriate Candidate for the Planned Anesthesia: Yes Alternatives and Risks of Anesthesia Discussed w Pt/Guardian: Yes Pt/Guardian Understands and Agrees with Anesthesia Plan: Yes Additional Comments: PMH: 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, uses inhalers for cough/dust ( denies asthma), IBS, PLAN: GA-LMA with iv toradol PreAnesthesia Questionnaire HEENT History: Reports: None Cardiovascular History: Reports: None Respiratory History: Reports: Asthma Gastrointestinal History: Reports: Irritable Bowel Syndrome, Other (See Below) Other Gastrointestinal History: digestive ulcers Genitourinary History: Reports: Pyelonephritis 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: , Spontaneous Other OB/BYN History: 26 , para 4, multiple SAB's, ETOP x2 Musculoskeletal History: Reports: Fracture, Other (See Below) Other Musculoskeletal History: bilateral foot and rib fracture Neurological History: Reports: None Psychiatric History: Reports: None Endocrine/Metabolic History: Reports: None 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 Immunologic History: Reports: Other (See Below) Other Immunologic History: LUPUS Oncologic (Cancer) History: Reports: None Dermatologic History: Reports: Other (See Below) Other Dermatologic History: rash from lupus on upper face and chest - Infectious Disease History Infectious Disease History: Reports: None - Past Surgical History Head Surgeries/Procedures: Reports: None HEENT Surgical History: Reports: Oral Surgery Other HEENT Surgeries/Procedures: wisdom teeth extraction Female Surgical History: Reports: D&C - Past Imaging History Past Imaging History: Reports: None - SUBSTANCE USE Smoking Status *Q: Former Smoker Tobacco Use Within Last Twelve Months:  Recreational Drug Use History: No - HOME MEDS Home Medications: Home Meds Fluticasone/Salmeterol [Advair Diskus 250-50] 1 puff INH BID 01/10/17 [History] Triamcinolone Acetonide [Triamcinolone Acetonide 0.1% Oint] 15 gm TOP BID PRN [History] predniSONE [Prednisone] 5 mg PO BID 01/10/17 [History] Albuterol [Proair HFA] 2 puff INH ASDIRECTED PRN 01/09/18 [History] Betamethasone Valerate 1 applic TOP ASDIRECTED PRN 01/09/18 [History] Cetirizine [ZyrTEC] 1 tab PO ASDIRECTED PRN 01/09/18 [History] - CURRENT (IN HOUSE) MEDS Current Meds: Current Medications Discontinued Medications Fentanyl (Sublimaze) Confirm Administered Dose 100 mcg .ROUTE .STK-MED ONE Stop: 01/13/18 07:30 Lidocaine (Xylocaine-Mpf 2%) Confirm Administered Dose 5 ml .ROUTE .STK-MED ONE Stop: 01/13/18 07:30 Midazolam HCl (Versed 1 Mg/Ml) Confirm Administered Dose 2 mg .ROUTE .STK-MED ONE Stop: 01/13/18 07:30 Propofol (Diprivan 20 Ml) Confirm Administered Dose 200 mg .ROUTE .STK-MED ONE Stop: 01/13/18 07:30
[2018-01-13] MEDS ORDERED: Ondansetron 4 MG/2 ML SDV ONE (12:55)
[2018-01-13] MEDS ORDERED: Ketorolac 30 MG/ML SDV ONE (12:55)
--- NOTE | 2018-01-13 13:13 | PCM.OPNOTE ---
- General Post-Op/Procedure Note Date of Surgery/Procedure: 01/13/18 Operative Procedure(s): Suction D & C Findings: pre-op uterus was boggy, 8 week size, anteverted, sounded at 8cm; post-op uterus was firm, 7 week size; tissue Pre Op Diagnosis: First trimester missed SAB Post-Op Diagnosis: same Anesthesia Technique: General LMA Primary Surgeon: Cherelle Randolph Tool Pusher: Jeny Honeycutt Fluid Replacement, Intraop: 600 EBL in mLs: 150 Complications: none known Condition: Stable Free Text/Narrative:: Dictation: [id number]
--- NOTE | 2018-01-13 13:28 | PCM.POSTAN ---
POST ANESTHESIA ASSESSMENT - MENTAL STATUS Mental Status: Alert, Oriented - RESPIRATORY Respiratory Status: Respiratory Rate WNL, Airway Patent, O2 Saturation Stable - CARDIOVASCULAR CV Status: Pulse Rate WNL, Blood Pressure Stable, Elevated Pulse Rate - GASTROINTESTINAL GI Status: No Symptoms - POST OP HYDRATION Hydration Status: Adequate & Stable
--- NOTE | 2018-01-13 13:48 | PCM48HPAN ---
Post Anesthesia Note - EVALUATION WITHIN 48HRS OF ANESTHETIC Vital Signs in Normal Range: Yes Patient Participated in Evaluation: Yes Respiratory Function Stable: Yes Airway Patent: Yes Cardiovascular Function Stable: Yes Hydration Status Stable: Yes Pain Control Satisfactory: Yes Nausea and Vomiting Control Satisfactory: Yes Mental Status Recovered: Yes Resp Rate: 10
[2018-01-13 14:42] VITALS: BP 105/63
--- NOTE | 2018-01-13 20:24 | OR ---
SURGEON: Cherelle Randolph M.D. DATE OF PROCEDURE: 01/13/2018 PREOPERATIVE DIAGNOSIS: First trimester missed AB. POSTOPERATIVE DIAGNOSIS: First trimester missed AB. PROCEDURE: Suction, dilatation, and curettage. OUTREACH EDUCATOR: Eleanor Honeycutt MS4 ANESTHESIA: General LMA. EBL: 150 mL. FLUIDS: 600 mL of crystalloid. FINDINGS: Preoperatively, uterus anteverted 7-8 week size, somewhat boggy, cervix closed; postoperatively, the uterus was firm, 7-week size with minimal bleeding. BRIEF HISTORY: This is a 32-year-old female, she has a history of recurrent miscarriages. She has lupus. 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 Therefore, the case was delayed until today and we do have 4 units of blood that are compatible with her antibodies. She was offered options of vaginal Cytotec, continued expectant management or suction D and C, she desires to proceed with a suction, dilatation, and curettage with risks discussed including bleeding, infection, uterine perforation with injury to surrounding organs, and risk of hysterectomy, risk of Asherman syndrome, and risk of anesthesia. Understanding all these risks, she does desire to proceed. DESCRIPTION OF PROCEDURE: With the patient in dorsal lithotomy position, under adequate LMA analgesia, the perineum and vagina were prepped with Betadine and draped in usual fashion for vaginal surgery. SCDs were in place. The bladder had been drained with a straight cath and an appropriate time-out was held. Bimanual examination, which revealed the findings as noted above. The speculum was placed in the vagina. The anterior cervix was grasped with an Allis clamp. The uterus sounded to 8 cm. The cervix was dilated to 9 mm Hegar dilator. A 9 mm straight suction cannula was placed to the uterine fundus and repetitively removed on the second and third pass. Large amount of tissue was obtained. After that, no further tissue was obtained. A total of 6 passes were taken with the suction cannula and then sharp curettage was gently performed at 12, 3, 6, and 9 o'clock position with a good uterine cry felt. Three additional passes were taken with the suction cannula. There was no additional tissue. There was a small amount of bleeding; therefore, all of the instruments removed from the vagina. Bimanual examination was performed. There was minimal bleeding and findings were as noted above. All of the instruments were accounted for. Final sponge, needle, and instrument count were correct. There were no known complications. The patient was transferred to recovery in good condition. RALPH MARIE /[id number]
== END 2018-01-13 14:25 | disposition home or self-care (01) ==
LOC: MW.SDS 10:42
PROVIDERS: ATTEND Obstetrics & Gynecology
DX: O02.1 Missed abortion (principal); M32.9 Systemic lupus erythematosus, unspecified; Z91.018 Allergy to other foods
CPT/HCPCS: 36415; 59820; 85027; 86850; 86900; 86901; 86902; 86920; 86921; 86922; J1885; J2250; J2405; J3010; J2704

== ENCOUNTER 2018-05-02 06:45 | Day surgery (SDC) | payer MEDICAID ==
[2018-05-02] MEDS ORDERED: Ondansetron 4 MG/2 ML SDV ONE (07:29)
[2018-05-02] MEDS ORDERED: Propofol 200 MG/20 ML SDV ONE (07:30)
[2018-05-02] MEDS ORDERED: Midazolam 1 MG/ML 2 ML SDV ONE (07:30)
[2018-05-02] MEDS ORDERED: fentaNYL 100 MCG/2 ML SDV ONE (07:30)
--- NOTE | 2018-05-02 07:33 | PCM.PREANE ---
Preanesthetic Assessment - Procedure Proposed Procedure: diagnostic hysteroscopy and attendant descriptors - Anesthesia/Transfusion/Family Hx Anesthesia History: Prior Anesthesia Without Reaction Family History of Anesthesia Reaction: No Transfusion History: No Prior Transfusion(s) Additional History: Hx of antibodies so Xmatch not possible per story presneted by colleagues from prior cancellation of case. OB hx is high risk with multiple SABs. - Review of Systems General: Other (hx of lupus) Pulmonary: No Symptoms, Other (uses advair) Cardiovascular: No Symptoms Gastrointestinal: Other (IBS - low dose prednisone) Other: Reports: Anxiety - Physical Assessment NPO Status Date: 05/01/18 NPO Status Time: 22:00 O2 Sat by Pulse Oximetry: 100 Respiratory Rate: 16 Vital Signs: Last Vital Signs Temp 97.7 F 05/02/18 07:00 Pulse 68 05/02/18 07:00 Resp 16 05/02/18 07:00 BP 106/67 05/02/18 07:00 Pulse Ox 100 05/02/18 07:00 Height: 5 ft 5 in Weight: 140 lb ASA Class: 3 Mental Status: Alert & Oriented x3 Airway Class: Mallampati = 2 Dentition: Reports: Normal Dentition Thyro-Mental Finger Breadths: 3 Mouth Opening Finger Breadths: 3 ROM/Head Extension: Limited/Partial Lungs: Clear to Auscultation, Normal Respiratory Effort Cardiovascular: Regular Rate, Regular Rhythm, No Murmurs - Lab Values: Laboratory Last Values WBC 9.98 K/uL (4.0-11.0) 05/02/18 06:57 RBC 4.12 M/uL (4.30-5.90) L 05/02/18 06:57 Hgb 12.7 g/dL (12.0-16.0) 05/02/18 06:57 Hct 38.1 % (36.0-46.0) 05/02/18 06:57 MCV 92.5 fL (80.0-98.0) 05/02/18 06:57 MCH 30.8 pg (27.0-32.0) 05/02/18 06:57 MCHC 33.3 g/dL (31.0-37.0) 05/02/18 06:57 RDW Std Deviation 47.5 fl (28.0-62.0) 05/02/18 06:57 RDW Coeff of Mery 14 % (11.0-15.0) 05/02/18 06:57 Plt Count 217 K/uL (150-400) 05/02/18 06:57 MPV 10.20 fL (7.40-12.00) 05/02/18 06:57 Neut % (Auto) 63.0 % (48.0-80.0) 05/02/18 06:57 Lymph % (Auto) 29.4 % (16.0-40.0) 05/02/18 06:57 Parmer % (Auto) 6.1 % (0.0-15.0) 05/02/18 06:57 Eos % (Auto) 1.2 % (0.0-7.0) 05/02/18 06:57 Baso % (Auto) 0.3 % (0.0-1.5) 05/02/18 06:57 Neut # (Auto) 6.3 K/uL (1.4-5.7) H 05/02/18 06:57 Lymph # (Auto) 2.9 K/uL (0.6-2.4) H 05/02/18 06:57 Parmer # (Auto) 0.6 K/uL (0.0-0.8) 05/02/18 06:57 Eos # (Auto) 0.1 K/uL (0.0-0.7) 05/02/18 06:57 Baso # (Auto) 0.0 K/uL (0.0-0.1) 05/02/18 06:57 Nucleated RBC % 0.0 /100WBC 05/02/18 06:57 Nucleated RBCs # 0 K/uL 05/02/18 06:57 - Allergies Allergies/Adverse Reactions: Allergies Allergy/AdvReac Type Severity Reaction Status Date / Time soy protein Allergy Swelling Uncoded 01/09/18 13:35 - Blood Blood Available: No Product(s) Available: None (aware of antibodies) - Anesthesia Plan Pre-Op Medication Ordered: None - Acknowledgements Anesthesia Type Planned: General Anesthesia (probable LMA, vs OET) Pt an Appropriate Candidate for the Planned Anesthesia: Yes Alternatives and Risks of Anesthesia Discussed w Pt/Guardian: Yes Pt/Guardian Understands and Agrees with Anesthesia Plan: Yes PreAnesthesia Questionnaire HEENT History: Reports: None Cardiovascular History: Reports: None Respiratory History: Reports: Other (See Below) Other Respiratory History: denies asthma, only "hayfever", "shortness of breath around horses and dust" Gastrointestinal History: Reports: Irritable Bowel Syndrome, Other (See Below) Other Gastrointestinal History: digestive ulcers Genitourinary History: Reports: Pyelonephritis 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: , Spontaneous Other OB/BYN History: 26 , para 4, multiple SAB's, ETOP x2 Musculoskeletal History: Reports: Fracture, Other (See Below) Other Musculoskeletal History: bilateral foot and rib fracture Neurological History: Reports: None Psychiatric History: Reports: None Endocrine/Metabolic History: Reports: None Hematologic History: Reports: Other (See Below) Other Hematologic History: MTHFR, anti jk anti c antibodies Immunologic History: Reports: Other (See Below) Other Immunologic History: LUPUS Oncologic (Cancer) History: Reports: None Dermatologic History: Reports: Other (See Below) Other Dermatologic History: occasional rash from lupus on upper face and chest - Infectious Disease History Infectious Disease History: Reports: None - Past Surgical History Head Surgeries/Procedures: Reports: None HEENT Surgical History: Reports: Oral Surgery Other HEENT Surgeries/Procedures: wisdom teeth extraction Female Surgical History: Reports: D&C - Past Imaging History Past Imaging History: Reports: None - SUBSTANCE USE Smoking Status *Q: Never Smoker Recreational Drug Use History: No - HOME MEDS Home Medications: Home Meds Fluticasone/Salmeterol [Advair Diskus 250-50] 2 puff INH BID 01/10/17 [History] Triamcinolone Acetonide [Triamcinolone Acetonide 0.1% Oint] 15 gm TOP BID PRN [History] predniSONE [Prednisone] 5 mg PO BID 01/10/17 [History] Albuterol [Proair HFA] 2 puff INH ASDIRECTED PRN 01/09/18 [History] Betamethasone Valerate 1 applic TOP ASDIRECTED PRN 01/09/18 [History] Cetirizine [ZyrTEC] 1 tab PO DAILY PRN 01/09/18 [History] Cellwise Tablet 2 tab PO DAILY PRN 04/27/18 [History] Cranberry Conc/C/Bacill Coag [Cranberry Tablet] 2 tab PO DAILY PRN 04/27/18 [ History] Florify 1 tab PO BEDTIME PRN 04/27/18 [History] Hydroxychloroquine Sulfate [Plaquenil] 200 mg PO BID 04/27/18 [History] Oddwater Hancock 3 3 tab PO DAILY PRN 04/27/18 [History] Ondansetron [Zofran ODT] 4 mg SL ASDIRECTED PRN 04/27/18 [History] Provexcv 2 tab PO BID PRN 04/27/18 [History] Provexcv Capsules 2 tab PO BID PRN 04/27/18 [History] Recover A1 2 tab PO BID PRN 04/27/18 [History] Replenex Extra Strength 3 tab PO BID PRN 04/27/18 [History] Vitality Calcium Complete 250 mg PO DAILY PRN 04/27/18 [History] Vitamin D3/Vitamin K2 (Mk4) [K2 Plus D3 Tablet] 90 mg PO DAILY PRN 04/27/18 [ History]
--- NOTE | 2018-05-02 08:29 | PCM.OPNOTE ---
<Eve Jauregui - Last Filed: 05/02/18 08:48> - General Post-Op/Procedure Note Date of Surgery/Procedure: 05/02/18 Operative Procedure(s): hysteroscopy, dilation and curretage Findings: blood-filled bleb at uterine fundus biopsied (3mm), normal tubal ostia, otherwise normal uterus and cervix Pre Op Diagnosis: abnormal uterine bleeding Post-Op Diagnosis: same Anesthesia Technique: General ET Tube Primary Surgeon: Cherelle Randolph Data Modeling Specialist: Eve Jauregui Pathology: directed biopsy of fundal endometrial lesion, ECC, endometrial curretings Fluid Replacement, Intraop: 600 EBL in mLs: 10 Drain/Tube Comments:: hysteroscopic deficit 100 mL normal saline Complications: none known Condition: Stable <Cherelle Randolph - Last Filed: 05/02/18 09:01> - General Post-Op/Procedure Note Free Text/Narrative:: Intake & Output 05/01/18 05/02/18 05/02/18 22:59 06:59 14:59 Intake Total 1250 Output Total 50 Balance 1200
[2018-05-02 10:30] VITALS: BP 108/64
--- NOTE | 2018-05-03 08:55 | OR ---
SURGEON: Cherelle Randolph M.D. DATE OF PROCEDURE: 05/02/2018 PREOPERATIVE DIAGNOSIS: Abnormal uterine bleeding. POSTOPERATIVE DIAGNOSIS: Abnormal uterine bleeding. PROCEDURE: Hysteroscopically directed biopsy fractional D and C. GEOGRAPHIC INFORMATION SYSTEMS DIRECTOR: RHEA Soria4. ANESTHESIA: General LMA. ESTIMATED BLOOD LOSS: Less than 10 mL. FLUIDS: 600 mL crystalloid. Hysteroscopic deficit of 100 mL normal saline. FINDINGS: Uterus was anteverted and sounds to 8 cm. There was excellent visualization of the uterine cavity. Bilateral tubal ostia were identified and appeared normal. At the uterine fundus, there was a 3-mm bleb that was dark red in color and upon evaluation was blood filled with no significant abnormality of the surrounding tissue. However, this tissue was biopsied. There were no other polyps, lesions, or abnormalities identified. COMPLICATIONS: None known. DISPOSITION: Stable to recovery. BRIEF HISTORY: This is a 32-year-old female, she presents with abnormal uterine bleeding. She underwent a D and C. For the first month following the D and C for missed , she experienced no bleeding. She then began bleeding for a total of 6 weeks and was evaluated in the clinic. Saline-enhanced ultrasound showed a 3-mm lesion at the uterine fundus which suggested some Doppler flow and therefore I did recommend proceeding with hysteroscopic evaluation with possible biopsy, possible polypectomy and D and C, with risks discussed including bleeding, infection, uterine perforation, fluid overload, injury to surrounding organs. Understanding all these risks, she does desire to proceed. In the interim, since I saw her in the clinic, she did stop bleeding but she did want to proceed with the hysteroscopy to completely evaluate the abnormal bleeding and I did concur with her. DESCRIPTION OF PROCEDURE: With the patient in dorsal lithotomy position, under adequate general LMA anesthesia, the perineum and vagina were prepped with Betadine and draped in usual fashion for vaginal surgery. SCDs were in place. Straight catheterization had been performed, and an appropriate time-out was held. Bimanual examination revealed an anteverted, 8 week sized uterus. Speculum was placed in the vagina. The anterior lip of the cervix was grasped with an Allis clamp. Initially I attempted to pass the dilator, but was unable to find the internal os and therefore I took the 5 mm hysteroscope and with fluid flowing, I was easily able to find the internal os of the cervix and passed the hysteroscope without any dilatation. There was excellent visualization of the uterine cavity. Using normal saline as a distending medium, bilateral tubal ostia were identified. The bleb at the uterine fundus was grasped and an attempted biopsy, however, it was simply a fluid-filled sac and there was no active bleeding from it and within the sac was old blood. I did take a hysteroscopic scissors and carefully dissected around the area where the bleb was and removed this tissue and sent it as hysteroscopically directed biopsy. There being no other lesions, I proceeded with a sharp curettage of the endocervix after the hysteroscope had been removed. The curettings were collected using a Cytobrush. Sharp curettage of the endometrium was then performed starting at 12 o'clock position and proceeding in a clockwise manner and a moderate amount of tissue was obtained. All the instruments removed from the vagina. Final sponge, needle, and instrument counts were reported as correct. There were no known complications. The patient was transferred to recovery in good condition. RALPH MARIE /[id number]
== END 2018-05-02 10:35 | disposition home or self-care (01) ==
LOC: MW.SDS 06:45
PROVIDERS: ATTEND Obstetrics & Gynecology
DX: N93.9 Abnormal uterine and vaginal bleeding, unspecified (principal); N87.9 Dysplasia of cervix uteri, unspecified; Z91.018 Allergy to other foods
CPT/HCPCS: 36415; 58558; 84703; 85025; 88305; J2250; J2405; J2704; J3010; 00952

== ENCOUNTER 2019-03-30 17:29 | Inpatient (IN) | payer MEDICAID ==
[2019-03-30] MEDS ORDERED: Hydrocortisone Sodium Succinate 100 MG/2 ML SDV IV ONE (17:43)
[2019-03-30] MEDS ORDERED: Terbutaline 1 MG/ML SDV SUBCUT PRN (17:44)
[2019-03-30] MEDS ORDERED: Water For Irrigation,Sterile 1,000 ML Container IRR PRN (17:48)
[2019-03-30] MEDS ORDERED: Butorphanol 1 MG/ML SDV IVPUSH PRN (17:48)
[2019-03-30] MEDS ORDERED: Sodium Chloride 0.9% 10 ML Syringe FLUSH PRN (17:48)
[2019-03-30] MEDS ORDERED: Nalbuphine 10 MG/1 ML Vial IVPUSH PRN (17:48)
[2019-03-30] MEDS ORDERED: Methylergonovine 0.2 MG/1 ML Amp IM PRN (17:48)
[2019-03-30] MEDS ORDERED: Carboprost Tromethamine 250 MCG/1 ML Amp IM PRN (17:48)
[2019-03-30] MEDS ORDERED: Sodium Chloride 0.9% 2.5 ML Syringe FLUSH PRN (17:48)
[2019-03-30] MEDS ORDERED: Tranexamic Acid 1,000 MG in Sodium Chloride 0.9% 100 ML IV PRN (17:48)
[2019-03-30] MEDS ORDERED: Lidocaine 1% 50 ML MDV INJECT PRN (17:48)
[2019-03-30] MEDS ORDERED: Sodium Chloride 0.9% 10 ML SDV IV PRN (17:48)
[2019-03-30] MEDS ORDERED: Misoprostol 200 MCG Tab PO PRN (17:48)
[2019-03-30] MEDS ORDERED: Oxytocin/0.9 % Sodium Chloride 30 UNIT/500 ML BAG IV SCH ×2 (18:00)
[2019-03-30] MEDS: Lactated Ringers 1,000 ML IV SCH ×3 (18:23→21:30)
--- NOTE | 2019-03-30 20:51 | PCM.PREANE ---
Preanesthetic Assessment - Anesthesia/Transfusion/Family Hx Anesthesia History: Prior Anesthesia Without Reaction Family History of Anesthesia Reaction: No Transfusion History: No Prior Transfusion(s) - Review of Systems General: No Symptoms Pulmonary: No Symptoms Cardiovascular: No Symptoms Gastrointestinal: No Symptoms Neurological: No Symptoms Other: Reports: None - Physical Assessment Height: 5 ft 5 in Weight: 81.647 kg ASA Class: 2 Mental Status: Alert & Oriented x3 Airway Class: Mallampati = 2 Dentition: Reports: Normal Dentition Thyro-Mental Finger Breadths: 3 Mouth Opening Finger Breadths: 3 ROM/Head Extension: Full Lungs: Clear to Auscultation, Normal Respiratory Effort Cardiovascular: Regular Rate, Regular Rhythm - Lab Values: Laboratory Last Values WBC 9.90 K/uL (4.0-11.0) 03/30/19 18:15 RBC 3.52 M/uL (4.30-5.90) L 03/30/19 18:15 Hgb 11.2 g/dL (12.0-16.0) L 03/30/19 18:15 Hct 33.0 % (36.0-46.0) L 03/30/19 18:15 MCV 93.8 fL (80.0-98.0) 03/30/19 18:15 MCH 31.8 pg (27.0-32.0) 03/30/19 18:15 MCHC 33.9 g/dL (31.0-37.0) 03/30/19 18:15 RDW Std Deviation 46.5 fl (28.0-62.0) 03/30/19 18:15 RDW Coeff of Mery 14 % (11.0-15.0) 03/30/19 18:15 Plt Count 183 K/uL (150-400) 03/30/19 18:15 MPV 10.20 fL (7.40-12.00) 03/30/19 18:15 Nucleated RBC % 0.0 /100WBC 03/30/19 18:15 Nucleated RBCs # 0 K/uL 03/30/19 18:15 Blood Type O POSITIVE 03/30/19 18:15 Antibody Screen NEGATIVE 03/30/19 18:15 Crossmatch See Detail 03/30/19 18:15 - Allergies Allergies/Adverse Reactions: Allergies Allergy/AdvReac Type Severity Reaction Status Date / Time soy protein Allergy Swelling Uncoded 03/30/19 17:41 - Acknowledgements Anesthesia Type Planned: Epidural Pt an Appropriate Candidate for the Planned Anesthesia: Yes Alternatives and Risks of Anesthesia Discussed w Pt/Guardian: Yes Pt/Guardian Understands and Agrees with Anesthesia Plan: Yes PreAnesthesia Questionnaire HEENT History: Reports: None Cardiovascular History: Reports: None Respiratory History: Reports: Other (See Below) Other Respiratory History: denies asthma, only "hayfever", "shortness of breath around horses and dust" Gastrointestinal History: Reports: Irritable Bowel Syndrome, Other (See Below) Other Gastrointestinal History: digestive ulcers Genitourinary History: Reports: Pyelonephritis EMR SPECIALIST History: Reports: , Spontaneous : 25 Para: 3 LMP (Approximate): Other OB/BYN History: 24 , para 4, multiple SAB's, ETOP x2 Musculoskeletal History: Reports: Fracture, Other (See Below) Other Musculoskeletal History: bilateral foot and rib fracture Neurological History: Reports: None Psychiatric History: Reports: None Endocrine/Metabolic History: Reports: None Hematologic History: Reports: Other (See Below) Other Hematologic History: MTHFR, anti jk anti c antibodies, LUPUS Immunologic History: Reports: Other (See Below) Other Immunologic History: LUPUS Oncologic (Cancer) History: Reports: None Dermatologic History: Reports: Other (See Below) Other Dermatologic History: occasional rash from lupus on upper face and chest - Infectious Disease History Infectious Disease History: Reports: None - Past Surgical History Head Surgeries/Procedures: Reports: None HEENT Surgical History: Reports: Oral Surgery Other HEENT Surgeries/Procedures: wisdom teeth extraction Female Surgical History: Reports: D&C - Past Imaging History Past Imaging History: Reports: None - SUBSTANCE USE Smoking Status *Q: Never Smoker Recreational Drug Use History: No - HOME MEDS Home Medications: Home Meds Fluticasone/Salmeterol [Advair Diskus 250-50] 2 puff INH BID 01/10/17 [History] Triamcinolone Acetonide [Triamcinolone Acetonide 0.1% Oint] 15 gm TOP BID PRN [History] predniSONE [Prednisone] 5 mg PO BID 01/10/17 [History] Albuterol [Proair HFA] 2 puff INH ASDIRECTED PRN 01/09/18 [History] Betamethasone Valerate 1 applic TOP ASDIRECTED PRN 01/09/18 [History] Cetirizine [ZyrTEC] 1 tab PO DAILY PRN 01/09/18 [History] Cellwise Tablet 2 tab PO DAILY PRN 04/27/18 [History] Cranberry Conc/C/Bacill Coag [Cranberry Tablet] 2 tab PO DAILY PRN 04/27/18 [ History] Florify 1 tab PO BEDTIME PRN 04/27/18 [History] Hydroxychloroquine Sulfate [Plaquenil] 200 mg PO BID 04/27/18 [History] [place]water [place] 3 3 tab PO DAILY PRN 04/27/18 [History] Ondansetron [Zofran ODT] 4 mg SL ASDIRECTED PRN 04/27/18 [History] Provexcv 2 tab PO BID PRN 04/27/18 [History] Provexcv Capsules 2 tab PO BID PRN 04/27/18 [History] Recover A1 2 tab PO BID PRN 04/27/18 [History] Replenex Extra Strength 3 tab PO BID PRN 04/27/18 [History] Vitality Calcium Complete 250 mg PO DAILY PRN 04/27/18 [History] Vitamin D3/Vitamin K2 (Mk4) [K2 Plus D3 Tablet] 90 mg PO DAILY PRN 04/27/18 [ History] - CURRENT (IN HOUSE) MEDS Current Meds: Current Medications Butorphanol Tartrate (Stadol) 1 mg IVPUSH Q1H PRN PRN Reason: Pain Carboprost Tromethamine (Hemabate Ds) 250 mcg IM ASDIRECTED PRN PRN Reason: Post Hemorrhage Lactated Ringer's (Ringers, Lactated) 1,000 mls @ 150 mls/hr IV ASDIRECTED ELIZABETH Last Admin: 03/30/19 20:35 Dose: 999 mls/hr Oxytocin/Sodium Chloride (Oxytocin 30 Unit/500 Ml-Ns) 30 unit in 500 mls @ 999 mls/hr IV TITRATE ELIZABETH Tranexamic Acid 1,000 mg/ (Sodium Chloride) 110 mls @ 660 mls/hr IV ONETIME PRN PRN Reason: Bleeding Oxytocin/Sodium Chloride (Oxytocin 30 Unit/500 Ml-Ns) 30 unit in 500 mls @ 2 mls/hr IV TITRATE ELIZABETH; Protocol Last Infusion: 03/30/19 19:40 Dose: 6 munits/min, 6 mls/hr Lidocaine HCl (Xylocaine 1%) 50 ml INJECT ONETIME PRN PRN Reason: Laceration repair Methylergonovine Maleate (Methergine) 0.2 mg IM ASDIRECTED PRN PRN Reason: Post Hemorrhage Misoprostol (Cytotec) 200 mcg PO ONETIME PRN PRN Reason: Post Hemorrhage Nalbuphine HCl (Nubain) 10 mg IVPUSH Q1H PRN PRN Reason: Pain (severe 7-10) Sodium Chloride (Saline Flush) 10 ml FLUSH ASDIRECTED PRN PRN Reason: Keep Vein Open Sodium Chloride (Saline Flush) 2.5 ml FLUSH ASDIRECTED PRN PRN Reason: Keep Vein Open Sodium Chloride (Normal Saline) 10 ml IV ASDIRECTED PRN PRN Reason: IV Use Sterile Water (Sterile Water For Irrigation) 1,000 ml IRR ASDIRECTED PRN PRN Reason: delivery Terbutaline Sulfate (Brethine) 0.25 mg SUBCUT ASDIRECTED PRN PRN Reason: Tacysystole Discontinued Medications Hydrocortisone Sodium Succinate (Solu-Cortef) 100 mg IV ONETIME ONE Stop: 03/30/19 17:44 Last Admin: 03/30/19 18:22 Dose: 100 mg
--- NOTE | 2019-03-31 00:04 | PCM.DEL ---
L & D Note - General Info Date of Service: 03/30/19 Mother's Due Date: 04/06/19 - Delivery Note Labor: Augmented by ARM, Induced by ARM Delivery Outcome: Livebirth Infant Delivery Method: Spontaneous Vaginal Delivery-Single Presentation: Right Occiput Posterior (ROP) Nuchal Cord: None Prep: Other Anesthesia Type: None Amniotic Fluid Description: Clear Episiotomy Type: None Laceration: None Placenta: Intact, Spontaneous (Fischer) Cord: 3 Vessels Estimated Blood Loss: 200 Resuscitation Needed: No [place]: Suctioned Score 1 min: 9 Score 5 min: 9 Delivery Comments (Free Text/Narrative):: liveborn male - General Info Date of Service: 03/30/19 - Patient Data Weight - Most Recent: 81.647 kg Lab Results Last 24 Hours: Laboratory Results - last 24 hr 03/30/19 03/30/19 03/30/19 Range/Units 18:15 18:15 18:15 WBC 9.90 (4.0-11.0) K/uL RBC 3.52 L (4.30-5.90) M/uL Hgb 11.2 L (12.0-16.0) g/dL Hct 33.0 L (36.0-46.0) % MCV 93.8 (80.0-98.0) fL MCH 31.8 (27.0-32.0) pg MCHC 33.9 (31.0-37.0) g/dL RDW Std Deviation 46.5 (28.0-62.0) fl RDW Coeff of Mery 14 (11.0-15.0) % Plt Count 183 (150-400) K/uL MPV 10.20 (7.40-12.00) fL Nucleated RBC % 0.0 /100WBC Nucleated RBCs # 0 K/uL Blood Type O POSITIVE Antibody Screen NEGATIVE Crossmatch See Detail Med Orders - Current: Current Medications Butorphanol Tartrate (Stadol) 1 mg IVPUSH Q1H PRN PRN Reason: Pain Carboprost Tromethamine (Hemabate Ds) 250 mcg IM ASDIRECTED PRN PRN Reason: Post Hemorrhage Lactated Ringer's (Ringers, Lactated) 1,000 mls @ 150 mls/hr IV ASDIRECTED ELIZABETH Last Admin: 03/30/19 21:30 Dose: 999 mls/hr Oxytocin/Sodium Chloride (Oxytocin 30 Unit/500 Ml-Ns) 30 unit in 500 mls @ 999 mls/hr IV TITRATE ELIZABETH Tranexamic Acid 1,000 mg/ (Sodium Chloride) 110 mls @ 660 mls/hr IV ONETIME PRN PRN Reason: Bleeding Oxytocin/Sodium Chloride (Oxytocin 30 Unit/500 Ml-Ns) 30 unit in 500 mls @ 2 mls/hr IV TITRATE ELIZABETH; Protocol Last Infusion: 03/30/19 19:40 Dose: 6 munits/min, 6 mls/hr Lidocaine HCl (Xylocaine 1%) 50 ml INJECT ONETIME PRN PRN Reason: Laceration repair Methylergonovine Maleate (Methergine) 0.2 mg IM ASDIRECTED PRN PRN Reason: Post Hemorrhage Misoprostol (Cytotec) 200 mcg PO ONETIME PRN PRN Reason: Post Hemorrhage Nalbuphine HCl (Nubain) 10 mg IVPUSH Q1H PRN PRN Reason: Pain (severe 7-10) Sodium Chloride (Saline Flush) 10 ml FLUSH ASDIRECTED PRN PRN Reason: Keep Vein Open Sodium Chloride (Saline Flush) 2.5 ml FLUSH ASDIRECTED PRN PRN Reason: Keep Vein Open Sodium Chloride (Normal Saline) 10 ml IV ASDIRECTED PRN PRN Reason: IV Use Sterile Water (Sterile Water For Irrigation) 1,000 ml IRR ASDIRECTED PRN PRN Reason: delivery Terbutaline Sulfate (Brethine) 0.25 mg SUBCUT ASDIRECTED PRN PRN Reason: Tacysystole Discontinued Medications Hydrocortisone Sodium Succinate (Solu-Cortef) 100 mg IV ONETIME ONE Stop: 03/30/19 17:44 Last Admin: 03/30/19 18:22 Dose: 100 mg Fentanyl/Bupivacaine HCl (Xamswqlf-Cxwje-Or 2 Mcg/Ml-0.125%) Confirm Administered Dose 100 mls @ as directed .ROUTE .STK-MED ONE Stop: 03/30/19 20:56 - Problem List & Annotations (1) Vaginal delivery SNOMED Code(s): 315227144 Code(s): O80 - ENCOUNTER FOR FULL-TERM UNCOMPLICATED DELIVERY Status: Acute Current Visit: No - Problem List Review Problem List Initiated/Reviewed/Updated: Yes - My Orders Last 24 Hours: My Active Orders 03/30/19 17:44 Bedrest Bathroom Privileges [RC] ASDIRECTED Communication Order [RC] ASDIRECTED Oxygen Therapy [RC] ASDIRECTED Terbutaline [Brethine] 0.25 mg SUBCUT ASDIRECTED PRN 03/30/19 17:48 Patient Status [ADT] Routine May Shower [RC] ASDIRECTED Notify Provider [RC] PRN Up ad Gely [RC] ASDIRECTED Vital Signs [RC] PER UNIT ROUTINE Butorphanol [Stadol] 1 mg IVPUSH Q1H PRN Carboprost Tromethamine [Hemabate DS] 250 mcg IM ASDIRECTED PRN Lidocaine 1% [Xylocaine 1%] 50 ml INJECT ONETIME PRN Methylergonovine [Methergine] 0.2 mg IM ASDIRECTED PRN Nalbuphine [Nubain] 10 mg IVPUSH Q1H PRN Sodium Chloride 0.9% [Normal Saline] 10 ml IV ASDIRECTED PRN Sodium Chloride 0.9% [Saline Flush] 10 ml FLUSH ASDIRECTED PRN Sodium Chloride 0.9% [Saline Flush] 2.5 ml FLUSH ASDIRECTED PRN Tranexamic Acid [Cyklokapron] 1,000 mg Sodium Chloride 0.9% [Normal Saline] 100 ml IV ONETIME Water For Irrigation,Sterile [Sterile Water for Irrigation] 1,000 ml IRR ASDIRECTED PRN miSOPROStol [Cytotec] 200 mcg PO ONETIME PRN Scalp Electrode [WOMSER] Per Unit Routine Peripheral IV Insertion Adult [OM.PC] Routine Resuscitation Status Routine 03/30/19 18:00 Lactated Ringers [Ringers, Lactated] 1,000 ml IV ASDIRECTED Oxytocin/0.9 % Sodium Chloride [Oxytocin 30 Unit/500 ML-NS] 30 unit in 500 ml IV TITRATE Oxytocin/0.9 % Sodium Chloride [Oxytocin 30 Unit/500 ML-NS] 30 unit in 500 ml IV TITRATE 03/30/19 18:15 RED BLOOD CELLS LP [BBK] Routine
[2019-03-31] MEDS ORDERED: Lanolin 100% Cream 7 GM Tube TOP PRN (00:08)
[2019-03-31] MEDS ORDERED: Ibuprofen 400 MG Tab PO PRN (00:08)
[2019-03-31] MEDS ORDERED: Witch Hazel Medicated Pads 40/Jar TOP PRN (00:08)
[2019-03-31] MEDS ORDERED: Ibuprofen 800 MG Tab PO PRN (00:08)
[2019-03-31] MEDS ORDERED: Benzocaine/Menthol 20%-0.5% Spray 78 GM Cannister TOP PRN (00:08)
[2019-03-31] MEDS ORDERED: oxyCODONE 5 MG Tab PO PRN (00:08)
[2019-03-31] MEDS ORDERED: Bisacodyl 10 MG Supp RECTAL PRN (00:08)
[2019-03-31] MEDS ORDERED: Docusate Sodium 100 MG Cap PO PRN (00:08)
[2019-03-31] MEDS ORDERED: Acetaminophen 500 MG Tab PO PRN (00:08)
--- NOTE | 2019-03-31 01:56 | PCM48HPAN ---
Post Anesthesia Note - EVALUATION WITHIN 48HRS OF ANESTHETIC Vital Signs in Normal Range: Yes Patient Participated in Evaluation: Yes Respiratory Function Stable: Yes Airway Patent: Yes Cardiovascular Function Stable: Yes Hydration Status Stable: Yes Pain Control Satisfactory: Yes Nausea and Vomiting Control Satisfactory: Yes Mental Status Recovered: Yes
--- NOTE | 2019-03-31 02:38 | OR ---
SURGEON: Cherelle Randolph M.D. DATE OF PROCEDURE: 03/30/2019 PREOPERATIVE DIAGNOSES: A 39-week intrauterine , maternal lupus. POSTOPERATIVE DIAGNOSES: A 39-week intrauterine , maternal lupus. PROCEDURE: Pitocin induction of labor, artificial rupture of membranes, term spontaneous vaginal delivery. PRIMARY SURGEON: Cherelle Randolph MD ANESTHESIA: Epidural. ESTIMATED BLOOD LOSS: Less than 200 mL. FINDINGS: A liveborn male, Apgars 9 and 9, weighing 3560 g. Placenta spontaneous, Fischer intact with 3 vessels. Perineum intact. BRIEF HISTORY: This is a 33-year-old female, G24, P4, presents at 39 weeks' gestation for induction of labor. She has lupus which is followed with her construction skills teacher. She has also been followed with Maternal Medicine throughout . She is on chronic steroids. She received hydrocortisone 100 mg IV for stress- dose steroids, and she initially was 2 cm, 70%, minus 2 station. She was started on Pitocin when she was 3 to 4 cm dilated. Artificial rupture of membranes was performed. Clear fluid was noted. She had category 1 heart tones. She received an epidural for pain management, and she progressed to complete. DESCRIPTION OF PROCEDURE: With the patient in dorsal lithotomy position, the patient pushed over a 15- minute time period to a 5 plus station, at which time, the head was delivered spontaneously and atraumatically over the perineum with support in the right occiput posterior position with subsequent delivery of the infant's shoulders and body without any difficulty. The infant was bulb suctioned by nose and mouth, and the infant was handed to the mother in the presence of the nurse attending delivery. The infant was a liveborn male, Apgars 9 and 9, weighing 3560 g. After the cord had ceased to pulsate, it was doubly clamped and cut, and cord blood was collected for cord ABGs as well as routine cord blood sampling. Pitocin was initiated after delivery of the infant to assist with delivery of the placenta which was delivered spontaneously, Fischer intact with 3 vessels. Upon inspection of the pelvis and perineum, there were no periurethral, vaginal sidewall, cervical, or rectal lacerations. EBL was less than 200 mL. There were no known complications. Mother and baby are in LDR in good condition. RALPH / CYNTHIA /[id number]
[2019-03-31] MEDS ORDERED: Albuterol 8 GM Inhaler INH PRN (06:30)
[2019-03-31] MEDS ORDERED: Cetirizine 10 MG Tab PO PRN (06:30)
--- NOTE | 2019-03-31 06:44 | PCM.PNPP ---
- General Info Date of Service: 03/31/19 Functional Status: Reports: Pain Controlled, Tolerating Diet, Ambulating, Urinating - Review of Systems General: Reports: No Symptoms HEENT: Reports: No Symptoms Pulmonary: Reports: No Symptoms Cardiovascular: Reports: No Symptoms Gastrointestinal: Reports: No Symptoms Genitourinary: Reports: No Symptoms Musculoskeletal: Reports: No Symptoms Skin: Reports: No Symptoms Neurological: Reports: No Symptoms Psychiatric: Reports: No Symptoms - General Info Date of Service: 03/31/19 - Patient Data Vital Signs - Most Recent: Last Vital Signs Temp 36.3 C 03/31/19 04:00 Pulse 73 03/31/19 04:00 Resp 15 03/31/19 04:00 BP 96/49 L 03/31/19 04:00 Pulse Ox 94 L 03/31/19 04:00 Weight - Most Recent: 81.647 kg Lab Results - Last 24 Hours: Laboratory Results - last 24 hr 03/30/19 03/30/19 03/30/19 Range/Units 18:15 18:15 18:15 WBC 9.90 (4.0-11.0) K/uL RBC 3.52 L (4.30-5.90) M/uL Hgb 11.2 L (12.0-16.0) g/dL Hct 33.0 L (36.0-46.0) % MCV 93.8 (80.0-98.0) fL MCH 31.8 (27.0-32.0) pg MCHC 33.9 (31.0-37.0) g/dL RDW Std Deviation 46.5 (28.0-62.0) fl RDW Coeff of Mery 14 (11.0-15.0) % Plt Count 183 (150-400) K/uL MPV 10.20 (7.40-12.00) fL Nucleated RBC % 0.0 /100WBC Nucleated RBCs # 0 K/uL Cord ABG pH (7.18-7.38) Cord ABG Base Excess (-10--2) Cord VBG pH (7.25-7.45) Cord VBG Base Excess (-10--2) Blood Type O POSITIVE Antibody Screen NEGATIVE Crossmatch See Detail 03/30/19 Range/Units 23:24 WBC (4.0-11.0) K/uL RBC (4.30-5.90) M/uL Hgb (12.0-16.0) g/dL Hct (36.0-46.0) % MCV (80.0-98.0) fL MCH (27.0-32.0) pg MCHC (31.0-37.0) g/dL RDW Std Deviation (28.0-62.0) fl RDW Coeff of Mery (11.0-15.0) % Plt Count (150-400) K/uL MPV (7.40-12.00) fL Nucleated RBC % /100WBC Nucleated RBCs # K/uL Cord ABG pH 7.258 (7.18-7.38) Cord ABG Base Excess -6 (-10--2) Cord VBG pH 7.268 (7.25-7.45) Cord VBG Base Excess -5 (-10--2) Blood Type Antibody Screen Crossmatch Med Orders - Current: Current Medications Acetaminophen (Tylenol Extra Strength) 500 mg PO Q4H PRN PRN Reason: Pain Acetaminophen (Tylenol Extra Strength) 1,000 mg PO Q4H PRN PRN Reason: Pain Albuterol (Proventil Hfa) gm INH ASDIRECTED PRN PRN Reason: Shortness of Breath Benzocaine/Menthol (Dermoplast Pain Relief 20%-0.5% [place]) 78 gm TOP ASDIRECTED PRN PRN Reason: Perineal Comfort Measure Bisacodyl (Dulcolax) 10 mg RECTAL ONETIME PRN PRN Reason: Constipation Cetirizine HCl (Zyrtec) 10 mg PO DAILY PRN PRN Reason: Allergies Docusate Sodium (Colace) 100 mg PO BID PRN PRN Reason: Constipation Emollient Ointment (Lansinoh Hpa) 0 gm TOP ASDIRECTED PRN PRN Reason: Sore Nipples Hydroxychloroquine Sulfate (Plaquenil) 200 mg PO BID ELIZABETH Ibuprofen (Motrin) 400 mg PO Q4H PRN PRN Reason: Pain Ibuprofen (Motrin) 800 mg PO Q6H PRN PRN Reason: Pain Oxycodone HCl (Oxycodone) 5 mg PO Q2H PRN PRN Reason: Pain Prednisone (Prednisone) 5 mg PO BID [facility] Fluticasone/Salmeterol (Advair Diskus 250-50) 2 puff INH BID ELIZABETH Federico Hutson (Tucks) 1 pad TOP ASDIRECTED PRN PRN Reason: comfort care Discontinued Medications Butorphanol Tartrate (Stadol) 1 mg IVPUSH Q1H PRN PRN Reason: Pain Carboprost Tromethamine (Hemabate Ds) 250 mcg IM ASDIRECTED PRN PRN Reason: Post Hemorrhage Hydrocortisone Sodium Succinate (Solu-Cortef) 100 mg IV ONETIME ONE Stop: 03/30/19 17:44 Last Admin: 03/30/19 18:22 Dose: 100 mg Lactated Ringer's (Ringers, Lactated) 1,000 mls @ 150 mls/hr IV ASDIRECTED ELIZABETH Last Admin: 03/30/19 21:30 Dose: 999 mls/hr Oxytocin/Sodium Chloride (Oxytocin 30 Unit/500 Ml-Ns) 30 unit in 500 mls @ 999 mls/hr IV TITRATE ELIZABETH Tranexamic Acid 1,000 mg/ (Sodium Chloride) 110 mls @ 660 mls/hr IV ONETIME PRN PRN Reason: Bleeding Oxytocin/Sodium Chloride (Oxytocin 30 Unit/500 Ml-Ns) 30 unit in 500 mls @ 2 mls/hr IV TITRATE [facility]; Protocol Last Infusion: 03/30/19 19:40 Dose: 6 munits/min, 6 mls/hr Fentanyl/Bupivacaine HCl (Vpfyoahl-Tjorx-Cm 2 Mcg/Ml-0.125%) Confirm Administered Dose 100 mls @ as directed .ROUTE .K-MED ONE Stop: 03/30/19 20:56 Lidocaine HCl (Xylocaine 1%) 50 ml INJECT ONETIME PRN PRN Reason: Laceration repair Methylergonovine Maleate (Methergine) 0.2 mg IM ASDIRECTED PRN PRN Reason: Post Hemorrhage Misoprostol (Cytotec) 200 mcg PO ONETIME PRN PRN Reason: Post Hemorrhage Nalbuphine HCl (Nubain) 10 mg IVPUSH Q1H PRN PRN Reason: Pain (severe 7-10) Sodium Chloride (Saline Flush) 10 ml FLUSH ASDIRECTED PRN PRN Reason: Keep Vein Open Sodium Chloride (Saline Flush) 2.5 ml FLUSH ASDIRECTED PRN PRN Reason: Keep Vein Open Sodium Chloride (Normal Saline) 10 ml IV ASDIRECTED PRN PRN Reason: IV Use Sterile Water (Sterile Water For Irrigation) 1,000 ml IRR ASDIRECTED PRN PRN Reason: delivery Terbutaline Sulfate (Brethine) 0.25 mg SUBCUT ASDIRECTED PRN PRN Reason: Tacysystole - Infant Interaction Disposition, : in Room with Family Infant Interaction: Holding Feeding: Breastfed Infant; Nursed Well Support Person: Significant Other - Recovery Exam Fundal Tone: Firm Fundal Level: 2 Fingerbreadths Below Umbilicus Fundal Placement: Midline Lochia Amount: Small Lochia Color: Rubra/Red Perineum Description: Intact, Minimal Bruising/Swelling - Exam General: Alert, Oriented HEENT: Pupils Equal Neck: Supple Lungs: Normal Respiratory Effort GI/Abdominal Exam: Soft, Non-Tender, No Organomegaly, No Distention Extremities: Normal Inspection, Non-Tender, No Pedal Edema Skin: Warm, Dry, Intact Neurological: No New Focal Deficit Psy/Mental Status: Alert, Normal Affect, Normal Mood - Problem List & Annotations (1) Vaginal delivery SNOMED Code(s): 933102594 Code(s): O80 - ENCOUNTER FOR FULL-TERM UNCOMPLICATED DELIVERY Status: Acute Current Visit: No (2) Lupus SNOMED Code(s): 894861775 Code(s): M32.9 - SYSTEMIC LUPUS ERYTHEMATOSUS, UNSPECIFIED Status: Acute Current Visit: Yes - Problem List Review Problem List Initiated/Reviewed/Updated: Yes - My Orders Last 24 Hours: My Active Orders 03/30/19 17:44 Oxygen Therapy [RC] ASDIRECTED 03/30/19 17:48 Vital Signs [RC] PER UNIT ROUTINE 03/30/19 18:15 RED BLOOD CELLS LP [BBK] Routine 03/31/19 00:08 Patient Status [ADT] Routine May Shower [RC] ASDIRECTED Up ad Gely [RC] ASDIRECTED Vital Signs [RC] PER UNIT ROUTINE Acetaminophen [Tylenol Extra Strength] 1,000 mg PO Q4H PRN Acetaminophen [Tylenol Extra Strength] 500 mg PO Q4H PRN Benzocaine/Menthol [Dermoplast Pain Relief 20%-0.5% [place]] 78 gm TOP ASDIRECTED PRN Bisacodyl [Dulcolax] 10 mg RECTAL ONETIME PRN Docusate Sodium [Colace] 100 mg PO BID PRN Ibuprofen [Motrin] 400 mg PO Q4H PRN Ibuprofen [Motrin] 800 mg PO Q6H PRN Lanolin [Lansinoh HPA] See Dose Instructions TOP ASDIRECTED PRN Witch Caryl [Tucks] 1 pad TOP ASDIRECTED PRN oxyCODONE 5 mg PO Q2H PRN Assess Lochia [WOMSER] Per Unit Routine Assess Uterine Involution [WOMSER] Per Unit Routine Perineal Care [OM.PC] Per Unit Routine Peripheral IV Discontinue [OM.PC] Routine Resuscitation Status Routine 03/31/19 06:30 Albuterol [Proventil HFA] DOSE gm INH ASDIRECTED PRN Cetirizine [ZyrTEC] 10 mg PO DAILY PRN 03/31/19 09:00 Fluticasone/Salmeterol [Advair Diskus 250-50] 2 puff INH BID Hydroxychloroquine [Plaquenil] 200 mg PO BID predniSONE 5 mg PO BID 03/31/19 Breakfast Regular Diet [DIET] 04/01/19 05:11 HEMOGLOBIN/HEMATOCRIT,HH [HEME] Timed - Assessment Assessment:: PPD#1 after , stable, minimal lochia. She denies dizziness or shortness of breath. - Plan Plan:: Continue care. Restart oral prednisone, monitor BP. Discharge instructions reviewed, however, anticipate discharge tomorrow.
[2019-03-31] MEDS ORDERED: Fluticasone/Salmeterol 250-50 MCG Inhalation Powder 14/Diskus INH SCH (09:00)
[2019-03-31] MEDS ORDERED: PREDNISONE 5 MG PO SCH ×2 (09:00→21:00)
[2019-03-31] MEDS: Hydroxychloroquine 200 MG Tab PO SCH ×2 (09:26→22:19)
[2019-03-31] MEDS: Acetaminophen 500 MG Tab PO PRN ×2 (15:43→19:45)
[2019-04-01] MEDS: Acetaminophen 500 MG Tab PO PRN (07:41)
[2019-04-01 07:48] VITALS: BP 106/65
--- NOTE | 2019-04-01 10:20 | PCM.PNPP ---
- General Info Date of Service: 04/01/19 Subjective Update: patient is doing well. Baby is nursing but while baby was in the nursery, nursing staff noticed jerking activity, and peds came to assess the baby. Baby is being transferred to [place] for further assessment and Jacque will go with baby. She is doing fairly well mood torrez. I reviewed mood precautions with she and her partner. Functional Status: Reports: Pain Controlled, Tolerating Diet, Ambulating, Urinating - Review of Systems General: Reports: No Symptoms HEENT: Reports: No Symptoms Pulmonary: Reports: No Symptoms Cardiovascular: Reports: No Symptoms Gastrointestinal: Reports: No Symptoms Genitourinary: Reports: No Symptoms Musculoskeletal: Reports: No Symptoms Skin: Reports: No Symptoms Neurological: Reports: No Symptoms Psychiatric: Reports: No Symptoms - General Info Date of Service: 04/01/19 - Patient Data Vital Signs - Most Recent: Last Vital Signs Temp 36.3 C 04/01/19 07:11 Pulse 68 04/01/19 07:11 Resp 16 04/01/19 07:11 BP 106/65 04/01/19 07:11 Pulse Ox 97 04/01/19 07:11 Weight - Most Recent: 81.647 kg Lab Results - Last 24 Hours: Laboratory Results - last 24 hr 04/01/19 Range/Units 06:10 Hgb 10.4 L (12.0-16.0) g/dL Hct 32.5 L (36.0-46.0) % Med Orders - Current: Current Medications Acetaminophen (Tylenol Extra Strength) 500 mg PO Q4H PRN PRN Reason: Pain Acetaminophen (Tylenol Extra Strength) 1,000 mg PO Q4H PRN PRN Reason: Pain Last Admin: 04/01/19 07:41 Dose: 1,000 mg Albuterol (Ventolin Hfa) 0 gm INH Q4H PRN PRN Reason: Shortness of Breath Benzocaine/Menthol (Dermoplast Pain Relief 20%-0.5% [place]) 78 gm TOP ASDIRECTED PRN PRN Reason: Perineal Comfort Measure Bisacodyl (Dulcolax) 10 mg RECTAL ONETIME PRN PRN Reason: Constipation Docusate Sodium (Colace) 100 mg PO BID PRN PRN Reason: Constipation Last Admin: 03/31/19 09:25 Dose: 100 mg Emollient Ointment (Lansinoh Hpa) 0 gm TOP ASDIRECTED PRN PRN Reason: Sore Nipples Ibuprofen (Motrin) 400 mg PO Q4H PRN PRN Reason: Pain Ibuprofen (Motrin) 800 mg PO Q6H PRN PRN Reason: Pain Last Admin: 03/31/19 09:21 Dose: 800 mg Oxycodone HCl (Oxycodone) 5 mg PO Q2H PRN PRN Reason: Pain Cetirizine 10 Mg Tab 1 each PO DAILY PRN PRN Reason: Allergies Fluticasone/Salmeterol 250-50 Mcg Inhalation Powder 14/Diskus 2 each INH BID [facility] Last Admin: 03/31/19 22:18 Dose: Not Given Hydroxychloroquine (200 Mg Tab) 1 each PO BID [facility] Last Admin: 03/31/19 22:19 Dose: 1 each Prednisone 5 Mg 0 each PO DAILY [facility] Last Admin: 03/31/19 09:26 Dose: 1 each Prednisone 5 Mg X 1/ (2 Tab) 0.5 each PO BEDTIME [facility] Last Admin: 03/31/19 22:19 Dose: 0.5 each Witch Caryl (Tucks) 1 pad TOP ASDIRECTED PRN PRN Reason: comfort care Discontinued Medications Butorphanol Tartrate (Stadol) 1 mg IVPUSH Q1H PRN PRN Reason: Pain Carboprost Tromethamine (Hemabate Ds) 250 mcg IM ASDIRECTED PRN PRN Reason: Post Hemorrhage Hydrocortisone Sodium Succinate (Solu-Cortef) 100 mg IV ONETIME ONE Stop: 03/30/19 17:44 Last Admin: 03/30/19 18:22 Dose: 100 mg Lactated Ringer's (Ringers, Lactated) 1,000 mls @ 150 mls/hr IV ASDIRECTED [facility] Last Admin: 03/30/19 21:30 Dose: 999 mls/hr Oxytocin/Sodium Chloride (Oxytocin 30 Unit/500 Ml-Ns) 30 unit in 500 mls @ 999 mls/hr IV TITRATE ELIZABETH Tranexamic Acid 1,000 mg/ (Sodium Chloride) 110 mls @ 660 mls/hr IV ONETIME PRN PRN Reason: Bleeding Oxytocin/Sodium Chloride (Oxytocin 30 Unit/500 Ml-Ns) 30 unit in 500 mls @ 2 mls/hr IV TITRATE [facility]; Protocol Last Infusion: 03/30/19 19:40 Dose: 6 munits/min, 6 mls/hr Fentanyl/Bupivacaine HCl (Newwajgm-Jekww-Hq 2 Mcg/Ml-0.125%) Confirm Administered Dose 100 mls @ as directed .ROUTE .[facility] ONE Stop: 03/30/19 20:56 Lidocaine HCl (Xylocaine 1%) 50 ml INJECT ONETIME PRN PRN Reason: Laceration repair Methylergonovine Maleate (Methergine) 0.2 mg IM ASDIRECTED PRN PRN Reason: Post Hemorrhage Misoprostol (Cytotec) 200 mcg PO ONETIME PRN PRN Reason: Post Hemorrhage Nalbuphine HCl (Nubain) 10 mg IVPUSH Q1H PRN PRN Reason: Pain (severe 7-10) Sodium Chloride (Saline Flush) 10 ml FLUSH ASDIRECTED PRN PRN Reason: Keep Vein Open Sodium Chloride (Saline Flush) 2.5 ml FLUSH ASDIRECTED PRN PRN Reason: Keep Vein Open Sodium Chloride (Normal Saline) 10 ml IV ASDIRECTED PRN PRN Reason: IV Use Sterile Water (Sterile Water For Irrigation) 1,000 ml IRR ASDIRECTED PRN PRN Reason: delivery Terbutaline Sulfate (Brethine) 0.25 mg SUBCUT ASDIRECTED PRN PRN Reason: Tacysystole - Interaction Disposition, : [place] in Room with Family Infant Interaction: Holding Infant Feeding: Breastfed ; Nursed Well Support Person: Significant Other - Recovery Exam Fundal Tone: Firm Fundal Level: At Umbilicus Fundal Placement: Midline Lochia Amount: Scant Lochia Color: Rubra/Red Perineum Description: Other (see below) Other Perinuem Description: 2nd degree laceration Episiotomy/Laceration: Approximated Bladder Status: Voiding - Exam General: Alert, Oriented HEENT: Pupils Equal Neck: Supple Lungs: Normal Respiratory Effort GI/Abdominal Exam: Soft, Non-Tender, No Organomegaly, No Distention, No Mass Extremities: Normal Inspection, Non-Tender, No Pedal Edema Skin: Warm, Dry, Intact Neurological: No New Focal Deficit Psy/Mental Status: Alert, Normal Affect, Normal Mood - Problem List & Annotations (1) Vaginal delivery SNOMED Code(s): 639881003 Code(s): O80 - ENCOUNTER FOR FULL-TERM UNCOMPLICATED DELIVERY Status: Acute Current Visit: No (2) Lupus SNOMED Code(s): 080491516 Code(s): M32.9 - SYSTEMIC LUPUS ERYTHEMATOSUS, UNSPECIFIED Status: Acute Current Visit: Yes - Problem List Review Problem List Initiated/Reviewed/Updated: Yes - My Orders Last 24 Hours: My Active Orders 03/31/19 18:43 Ready for Discharge [RC] PER UNIT ROUTINE 03/31/19 21:00 Patient's Own Medication [Ptom] 0.5 each PO BEDTIME 04/01/19 10:16 Ready for Discharge [RC] PER UNIT ROUTINE - Assessment Assessment:: PPD#2 after , stable, minimal lochia. She denies dizziness or shortness of breath. - Plan Plan:: She is taking oral prednisone and understands the importance of continuing this. She will fly to [place] with baby. Discharge precautions reviewed.
== END 2019-04-01 12:45 | disposition home or self-care (01) | DRG 807 ==
LOC: MW.OBCHECK 17:29 → MW.OB 17:30 → MW.OBCHECK 17:56 → OBSVTOIN 23:24 → MW.OB 03-31 02:00
PROVIDERS: ADMIT Obstetrics & Gynecology; ATTEND Obstetrics & Gynecology
PROC: 10907ZC Drainage of Amniotic Fluid, Therapeutic from Products of Conception, Via Natural or Artificial Opening (ICD-10-PCS; principal; 2019-03-30)
PROC: 10E0XZZ Delivery of Products of Conception, External Approach (ICD-10-PCS; 2019-03-30)
PROC: 3E033VJ Introduction of Other Hormone into Peripheral Vein, Percutaneous Approach (ICD-10-PCS; 2019-03-30)
DX: O75.89 Other specified complications of labor and delivery (principal); Z37.0 Single live birth; M32.9 Systemic lupus erythematosus, unspecified; Z3A.39 39 weeks gestation of pregnancy
CPT/HCPCS: 01967; 36415; 51702; 59025; 59409; 82803; 85014; 85018; 85027; 86850; 86900; 86901; 86902; 86920; 86921; 86922; A9270-GY; J1720; J2590; J7120

== ENCOUNTER 2020-03-26 23:43 | Inpatient (IN) | payer MEDICAID ==
[2020-03-27] MEDS ORDERED: Lactated Ringers 1,000 ML IV SCH (00:45)
[2020-03-27] MEDS ORDERED: Nalbuphine 10 MG/1 ML Vial IVPUSH PRN (00:45)
[2020-03-27] MEDS ORDERED: Lidocaine 1% 50 ML MDV INJECT PRN (00:45)
[2020-03-27] MEDS ORDERED: Tranexamic Acid 1,000 MG in Sodium Chloride 0.9% 100 ML IV PRN (00:45)
[2020-03-27] MEDS ORDERED: Misoprostol 200 MCG Tab PO PRN (00:45)
[2020-03-27] MEDS ORDERED: Sodium Chloride 0.9% 2.5 ML Syringe FLUSH PRN (00:45)
[2020-03-27] MEDS ORDERED: Sodium Chloride 0.9% 10 ML Syringe FLUSH PRN (00:45)
[2020-03-27] MEDS ORDERED: Oxytocin/0.9 % Sodium Chloride 30 UNIT/500 ML BAG IV SCH ×2 (00:45→02:30)
[2020-03-27] MEDS ORDERED: Methylergonovine 0.2 MG/1 ML Amp IM PRN (00:45)
[2020-03-27] MEDS ORDERED: Sodium Chloride 0.9% 10 ML SDV IV PRN (00:45)
[2020-03-27] MEDS ORDERED: Water For Irrigation,Sterile 1,000 ML Container IRR PRN (00:45)
[2020-03-27] MEDS ORDERED: Carboprost Tromethamine 250 MCG/1 ML Amp IM PRN (00:45)
[2020-03-27] MEDS ORDERED: Terbutaline 1 MG/ML SDV SUBCUT PRN (02:19)
--- NOTE | 2020-03-27 02:19 | PCM.LDHP ---
L&D History of Present Illness - General Date of Service: 03/27/20 Admit Problem/Dx: Patient Status Order with Admit Dx/Problem 03/27/20 00:45 Patient Status [ADT] Routine Admission Diagnosis/Problem Admission Diagnosis/Problem 03/27/20 02:08 34 yo multip (/10/07/5) with LUPUS at 37 1/7 ([place]: 04/16/20) presenting to L&D with SROM at 2200; grossly ruptured, leaking large amount of clear odorless fluid; not anderson on arrival; SVE by nurse noted external os 4cm, internal os 1 cm, 50%/-3/soft/posterior; O+, RI, GBS-; handheld bedside ultrasound by this CNM noted cephalic presentation Source of Information: Patient History Limitations: Reports: No Limitations - Related Data Allergies/Adverse Reactions: Allergies Allergy/AdvReac Type Severity Reaction Status Date / Time soy protein Allergy Swelling Uncoded 03/05/20 00:09 Home Medications: Home Meds Fluticasone/Salmeterol [Advair Diskus 250-50] 2 puff INH BID 01/10/17 [History] predniSONE [Prednisone] 5 mg PO QAM 01/10/17 [History] Cetirizine [ZyrTEC] 10 mg PO DAILY PRN 01/09/18 [History] Hydroxychloroquine Sulfate [Plaquenil] 200 mg PO BID 04/27/18 [History] predniSONE 2.5 mg PO QPM 03/31/19 [History] Hydrocortisone/Aloe Vera [Cortizone-10 1% Creme] 28 gm TP DAILY 03/27/20 [History] Past Medical History HEENT History: Reports: None Cardiovascular History: Reports: None Respiratory History: Reports: Other (See Below) Other Respiratory History: denies asthma, only "hayfever", "shortness of breath around horses and dust" Gastrointestinal History: Reports: Irritable Bowel Syndrome, Other (See Below) Other Gastrointestinal History: digestive ulcers Genitourinary History: Reports: Pyelonephritis 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: , Spontaneous Other OB/BYN History: 26 , para 4, multiple SAB's, ETOP x2 Musculoskeletal History: Reports: Fracture, Other (See Below) Other Musculoskeletal History: bilateral foot and rib fracture Neurological History: Reports: None Psychiatric History: Reports: None Endocrine/Metabolic History: Reports: None Hematologic History: Reports: Other (See Below) Other Hematologic History: MTHFR, anti jk anti c antibodies, LUPUS Immunologic History: Reports: Other (See Below) Other Immunologic History: LUPUS Oncologic (Cancer) History: Reports: None Dermatologic History: Reports: Other (See Below) Other Dermatologic History: occasional rash from lupus on upper face and chest - Infectious Disease History Infectious Disease History: Reports: None - Past Surgical History Head Surgeries/Procedures: Reports: None HEENT Surgical History: Reports: Oral Surgery Other HEENT Surgeries/Procedures: wisdom teeth extraction Female Surgical History: Reports: D&C - Past Imaging History Past Imaging History: Reports: None Social & Family History - Family History Family Medical History: Noncontributory - Caffeine Use Caffeine Use: Reports: Coffee, Soda H&P Review of Systems - Review of Systems: Review Of Systems: See Below General: Reports: No Symptoms HEENT: Reports: No Symptoms Pulmonary: Reports: No Symptoms Cardiovascular: Reports: No Symptoms Gastrointestinal: Reports: No Symptoms Genitourinary: Reports: No Symptoms Musculoskeletal: Reports: No Symptoms Skin: Reports: No Symptoms Psychiatric: Reports: No Symptoms Neurological: Reports: No Symptoms Hematologic/Lymphatic: Reports: No Symptoms Immunologic: Reports: No Symptoms L&D Exam - Exam Exam: See Below - Vital Signs Weight: 204 lb - OB Specific Contraction Intensity: Mild Movement: Active Heart Tones: Present Heart Rate (FHR) Variability: Moderate (6-25 bmp) Presentation: Vertex (confirmed with bedside handheld ultrasound performed by CNM) - Graham Score Graham Score Cervix Position: Posterior Graham Score Consistency: Soft Graham Score Effacement: 31-50% Graham Score Dilation: 3-4 cm Graham Score 's Station: -3 Graham Score Total: 5 - Exam General: Alert, Oriented, Cooperative Lungs: Normal Respiratory Effort Cardiovascular: Regular Rate, Regular Rhythm GI/Abdominal Exam: Soft, Non-Tender Rectal Exam: Deferred Genitourinary: Deferred Back Exam: Normal Inspection, Full Range of Motion Extremities: Normal Inspection, Normal Range of Motion, Non-Tender, Normal Capillary Refill Skin: Warm, Dry, Intact Neurological: Normal Speech, Normal Tone, Sensation Intact Psychiatric: Alert, Normal Affect, Normal Mood - Patient Data Lab Results Last 24 hrs: Laboratory Results - last 24 hr 03/27/20 Range/Units 00:06 COVID-19 ([place]) NEGATIVE (NEGATIVE) - Problem List (1) Supervision of normal IUP (intrauterine ) in multigravida SNOMED Code(s): 305611638, 646747779, 283611091 ICD Code: Z34.80 - ENCOUNTER FOR SUPRVSN OF NORMAL , UNSP TRIMESTER Status: Acute Priority: High Current Visit: Yes Qualifiers: Trimester: third trimester Qualified Code(s): Z34.83 - Encounter for supervision of other normal , third trimester (2) Lupus SNOMED Code(s): 897070378 ICD Code: M32.9 - SYSTEMIC LUPUS ERYTHEMATOSUS, UNSPECIFIED Status: Acute Priority: High Current Visit: No Problem List Initiated/Reviewed/Updated: Yes Orders Last 24hrs: Active Orders 24 hr Category Date Time Status Patient Status [ADT] Routine ADT 03/27/20 00:45 Active Heart Tones [RC] CONTINUOUS Care 03/27/20 00:45 Active Non Stress Test [RC] PER UNIT ROUTINE Care 03/27/20 00:32 Active May Shower [RC] ASDIRECTED Care 03/27/20 00:45 Active Notify Provider [RC] PRN Care 03/27/20 00:45 Active Peripheral IV Care [RC] PRN Care 03/27/20 00:45 Active Up ad Gely [RC] ASDIRECTED Care 03/27/20 00:32 Active Vaginal Exam [RC] Click to Edit Care 03/27/20 00:32 Active Vital Signs [RC] PER UNIT ROUTINE Care 03/27/20 00:32 Active CBC W/O DIFF,HEMOGRAM [HEME] Routine Lab 03/27/20 00:45 Ordered RPR (SYPHILIS SERO) W/ RFLX [REF] Routine Lab 03/27/20 00:45 Ordered TYPE AND SCREEN [BBK] Routine Lab 03/27/20 00:45 Ordered Carboprost Tromethamine [Hemabate DS] Med 03/27/20 00:45 Active 250 mcg IM ASDIRECTED PRN Lactated Ringers [Ringers, Lactated] 1,000 ml Med 03/27/20 00:45 Active IV ASDIRECTED Lidocaine 1% [Xylocaine 1%] Med 03/27/20 00:45 Active 50 ml INJECT ONETIME PRN Methylergonovine [Methergine] Med 03/27/20 00:45 Active 0.2 mg IM ASDIRECTED PRN Nalbuphine [Nubain] Med 03/27/20 00:45 Active 10 mg IVPUSH Q1H PRN Oxytocin/0.9 % Sodium Chloride [Oxytocin 30 Unit/500 ML Med 03/27/20 00:45 Active -NS] 30 unit in 500 ml IV TITRATE Sodium Chloride 0.9% [Normal Saline] Med 03/27/20 00:45 Active 10 ml IV ASDIRECTED PRN Sodium Chloride 0.9% [Saline Flush] Med 03/27/20 00:45 Active 10 ml FLUSH ASDIRECTED PRN Sodium Chloride 0.9% [Saline Flush] Med 03/27/20 00:45 Active 2.5 ml FLUSH ASDIRECTED PRN Tranexamic Acid [Cyklokapron] 1,000 mg Med 03/27/20 00:45 Active Sodium Chloride 0.9% [Normal Saline] 100 ml IV ONETIME Water For Irrigation,Sterile [Sterile Water for Med 03/27/20 00:45 Active Irrigation] 1,000 ml IRR ASDIRECTED PRN miSOPROStoL [Cytotec] Med 03/27/20 00:45 Active 200 mcg PO ONETIME PRN Scalp Electrode [WOMSER] Per Unit Routine Oth 03/27/20 00:45 Ordered Peripheral IV Insertion Adult [OM.PC] Routine Oth 03/27/20 00:45 Ordered Resuscitation Status Routine Resus Stat 03/27/20 00:32 Ordered Medication Orders Carboprost Tromethamine (Hemabate Ds) 250 mcg IM ASDIRECTED PRN PRN Reason: Post Hemorrhage Lactated Ringer's (Ringers, Lactated) 1,000 mls @ 150 mls/hr IV ASDIRECTED ELIZABETH Oxytocin/Sodium Chloride (Oxytocin 30 Unit/500 Ml-Ns) 30 unit in 500 mls @ 999 mls/hr IV TITRATE ELIZABETH Tranexamic Acid 1,000 mg/ (Sodium Chloride) 110 mls @ 660 mls/hr IV ONETIME PRN PRN Reason: Bleeding Lidocaine HCl (Xylocaine 1%) 50 ml INJECT ONETIME PRN PRN Reason: Laceration repair Methylergonovine Maleate (Methergine) 0.2 mg IM ASDIRECTED PRN PRN Reason: Post Hemorrhage Misoprostol (Cytotec) 200 mcg PO ONETIME PRN PRN Reason: Post Hemorrhage Nalbuphine HCl (Nubain) 10 mg IVPUSH Q1H PRN PRN Reason: Pain (severe 7-10) Sodium Chloride (Saline Flush) 10 ml FLUSH ASDIRECTED PRN PRN Reason: Keep Vein Open Sodium Chloride (Saline Flush) 2.5 ml FLUSH ASDIRECTED PRN PRN Reason: Keep Vein Open Sodium Chloride (Normal Saline) 10 ml IV ASDIRECTED PRN PRN Reason: IV Use Sterile Water (Sterile Water For Irrigation) 1,000 ml IRR ASDIRECTED PRN PRN Reason: delivery Assessment/Plan Comment:: Admit A: 34 yo multip (/) with LUPUS at 37 1/7 ([place]: 04/16/20) presenting to L&D with SROM at 2200; grossly ruptured, leaking large amount of clear odorless fluid; not anderson on arrival; SVE by nurse noted external os 4cm, internal os 1 cm, 50%/-3/soft/posterior; O+, RI, GBS-; handheld bedside ultrasound by this CNM noted cephalic presentation P: Admit, induction of labor, cytotec x1 dose (PO & PV), anticipate , epidural PRN, Dr. Radames case
[2020-03-27] MEDS ORDERED: Misoprostol 25 MCG (1/4 of 100 MCG) Tab VAG PRN (02:30)
[2020-03-27] MEDS ORDERED: Misoprostol 25 MCG (1/4 of 100 MCG) Tab PO PRN (02:30)
[2020-03-27] MEDS ORDERED: Bupivicaine/fentaNYL/NS 250 ML ONE (03:43)
--- NOTE | 2020-03-27 04:18 | PCM.PREANE ---
Preanesthetic Assessment - Anesthesia/Transfusion/Family Hx Anesthesia History: Prior Anesthesia Without Reaction (D&C's) Family History of Anesthesia Reaction: No Transfusion History: No Prior Transfusion(s) - Review of Systems General: No Symptoms Pulmonary: No Symptoms Cardiovascular: No Symptoms Gastrointestinal: No Symptoms Neurological: No Symptoms Other: Reports: None - Physical Assessment NPO Status Date: 03/27/20 NPO Status Time: 03:30 (water) Height: 5 ft 5 in Weight: 92.533 kg ASA Class: 3 Mental Status: Alert & Oriented x3 Airway Class: Mallampati = 1 Dentition: Reports: Normal Dentition Thyro-Mental Finger Breadths: 3 ROM/Head Extension: Full Lungs: Clear to Auscultation, Normal Respiratory Effort Cardiovascular: Regular Rate, Regular Rhythm - Lab Values: Laboratory Last Values WBC 10.10 K/uL (4.0-11.0) 03/27/20 02:23 RBC 3.64 M/uL (4.30-5.90) L 03/27/20 02:23 Hgb 10.2 g/dL (12.0-16.0) L 03/27/20 02:23 Hct 32.5 % (36.0-46.0) L 03/27/20 02:23 MCV 89.3 fL (80.0-98.0) 03/27/20 02:23 MCH 28.0 pg (27.0-32.0) 03/27/20 02:23 MCHC 31.4 g/dL (31.0-37.0) 03/27/20 02:23 RDW Std Deviation 45.1 fl (28.0-62.0) 03/27/20 02:23 RDW Coeff of Mery 14 % (11.0-15.0) 03/27/20 02:23 Plt Count 221 K/uL (150-400) 03/27/20 02:23 MPV 11.20 fL (7.40-12.00) 03/27/20 02:23 Nucleated RBC % 0.2 /100WBC 03/27/20 02:23 Nucleated RBCs # 0 K/uL 03/27/20 02:23 COVID-19 ([place]) NEGATIVE (NEGATIVE) 03/27/20 00:06 Blood Type O POSITIVE 03/27/20 02:23 Antibody Screen NEGATIVE 03/27/20 02:23 Crossmatch See Detail 03/27/20 02:23 - Allergies Allergies/Adverse Reactions: Allergies Allergy/AdvReac Type Severity Reaction Status Date / Time soy protein Allergy Swelling Uncoded 03/05/20 00:09 - Acknowledgements Anesthesia Type Planned: Epidural Pt an Appropriate Candidate for the Planned Anesthesia: Yes Alternatives and Risks of Anesthesia Discussed w Pt/Guardian: Yes Pt/Guardian Understands and Agrees with Anesthesia Plan: Yes PreAnesthesia Questionnaire HEENT History: Reports: None Cardiovascular History: Reports: None Respiratory History: Reports: Other (See Below) Other Respiratory History: denies asthma, only "hayfever", "shortness of breath around horses and dust" Gastrointestinal History: Reports: Irritable Bowel Syndrome, Other (See Below) Other Gastrointestinal History: digestive ulcers Genitourinary History: Reports: Pyelonephritis [employer]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: , Spontaneous Other OB/BYN History: 26 , para 5, multiple SAB's, ETOP x2 Musculoskeletal History: Reports: Fracture, Other (See Below) Other Musculoskeletal History: bilateral foot and rib fracture Neurological History: Reports: None Psychiatric History: Reports: None Endocrine/Metabolic History: Reports: None Hematologic History: Reports: Other (See Below) Other Hematologic History: MTHFR, anti jk anti c antibodies, LUPUS Immunologic History: Reports: Other (See Below) Other Immunologic History: LUPUS Oncologic (Cancer) History: Reports: None Dermatologic History: Reports: Other (See Below) Other Dermatologic History: occasional rash from lupus on upper face and chest - Infectious Disease History Infectious Disease History: Reports: None - Past Surgical History Head Surgeries/Procedures: Reports: None HEENT Surgical History: Reports: Oral Surgery Other HEENT Surgeries/Procedures: wisdom teeth extraction Female Surgical History: Reports: D&C - Past Imaging History Past Imaging History: Reports: None - SUBSTANCE USE Smoking Status *Q: Former Smoker Tobacco Use Within Last Twelve Months: No Second Hand Smoke Exposure: No Recreational Drug Use History: No - HOME MEDS Home Medications: Home Meds Fluticasone/Salmeterol [Advair Diskus 250-50] 2 puff INH BID 01/10/17 [History] predniSONE [Prednisone] 5 mg PO QAM 01/10/17 [History] Cetirizine [ZyrTEC] 10 mg PO DAILY PRN 01/09/18 [History] Hydroxychloroquine Sulfate [Plaquenil] 200 mg PO BID 04/27/18 [History] predniSONE 2.5 mg PO QPM 03/31/19 [History] Hydrocortisone/Aloe Vera [Cortizone-10 1% Creme] 28 gm TP DAILY 03/27/20 [History] - CURRENT (IN HOUSE) MEDS Current Meds: Current Medications Carboprost Tromethamine (Hemabate Ds) 250 mcg IM ASDIRECTED PRN PRN Reason: Post Hemorrhage Lactated Ringer's (Ringers, Lactated) 1,000 mls @ 150 mls/hr IV ASDIRECTED ELIZABETH Last Admin: 03/27/20 03:17 Dose: 999 mls/hr Documented by: Oxytocin/Sodium Chloride (Oxytocin 30 Unit/500 Ml-Ns) 30 unit in 500 mls @ 999 mls/hr IV TITRATE ELIZABETH Tranexamic Acid 1,000 mg/ (Sodium Chloride) 110 mls @ 660 mls/hr IV ONETIME PRN PRN Reason: Bleeding Oxytocin/Sodium Chloride (Oxytocin 30 Unit/500 Ml-Ns) 30 unit in 500 mls @ 2 mls/hr IV TITRATE ELIZABETH; Protocol Lidocaine HCl (Xylocaine 1%) 50 ml INJECT ONETIME PRN PRN Reason: Laceration repair Methylergonovine Maleate (Methergine) 0.2 mg IM ASDIRECTED PRN PRN Reason: Post Hemorrhage Misoprostol (Cytotec) 200 mcg PO ONETIME PRN PRN Reason: Post Hemorrhage Misoprostol (Cytotec) 25 mcg VAG ONETIME PRN PRN Reason: Cervical Ripening Last Admin: 03/27/20 02:39 Dose: 25 mcg Documented by: Misoprostol (Cytotec) 25 mcg PO ONETIME PRN PRN Reason: Cervical Ripening Last Admin: 03/27/20 02:35 Dose: 25 mcg Documented by: Nalbuphine HCl (Nubain) 10 mg IVPUSH Q1H PRN PRN Reason: Pain (severe 7-10) Sodium Chloride (Saline Flush) 10 ml FLUSH ASDIRECTED PRN PRN Reason: Keep Vein Open Sodium Chloride (Saline Flush) 2.5 ml FLUSH ASDIRECTED PRN PRN Reason: Keep Vein Open Sodium Chloride (Normal Saline) 10 ml IV ASDIRECTED PRN PRN Reason: IV Use Sterile Water (Sterile Water For Irrigation) 1,000 ml IRR ASDIRECTED PRN PRN Reason: delivery Terbutaline Sulfate (Brethine) 0.25 mg SUBCUT ASDIRECTED PRN PRN Reason: Tacysystole Discontinued Medications Fentanyl/Bupivacaine HCl (Fentanyl/Bupivacaine/Ns 2 Mcg-0.125% 250 Ml) Confirm Administered Dose 250 mls @ as directed .ROUTE .[employer] ONE Stop: 03/27/20 03:44
--- NOTE | 2020-03-27 07:18 | PCM.DEL ---
L & D Note - General Info Date of Service: 03/27/20 - Delivery Note Labor: Spontaneous Delivery Outcome: Livebirth Delivery Method: Spontaneous Vaginal Delivery-Single Presentation: Vertex (confirmed with bedside handheld ultrasound performed by CNM) Nuchal Cord: Present, Reduced (x1) Anesthesia Type: Epidural Episiotomy Type: None Laceration: None Placenta: Intact, Spontaneous Cord: 3 Vessels Estimated Blood Loss: 150 Resuscitation Needed: No Score 1 min: 8 Score 5 min: 9 Second Stage Interventions: Reports: Second Nurse Assessed Progress of Descent, Second Nurse Reviewed Contraction Pattern, Second Nurse Reviewed Heart Tones, Pushing Effectively, Pushing, Stirrups/Leg Supports Delivery Comments (Free Text/Narrative):: viable male; head delivered with good pushing; epidural for pain relief; nuchal x1, reduced; shoulders and body followed easily after; baby to mom's abdomen [id number] for assessment; placenta delivered grossly intact, esdras; 3VC; EBL 150 mL; pitocin to IVF; perineum intact; APGARs 8/9; weight: 7 lb 1 oz (3200 g); mom and baby left in stable condition with nurse at bedside for assessment - General Info Date of Service: 03/27/20 Admission Dx/Problem (Free Text): Patient Status Order with Admit Dx/Problem 03/27/20 00:45 Patient Status [ADT] Routine Admission Diagnosis/Problem Admission Diagnosis/Problem 03/27/20 02:08 34 yo multip (//19/5) with LUPUS at 37 1/7 ([place]INO: 04/16/20) presenting to L&D with SROM at 2200; grossly ruptured, leaking large amount of clear odorless fluid; not anderson on arrival; SVE by nurse noted external os 4cm, internal os 1 cm, 50%/-3/soft/posterior; O+, RI, GBS-; handheld bedside ultrasound by this CNM noted cephalic presentation Functional Status: Reports: Pain Controlled - Review of Systems General: Reports: No Symptoms HEENT: Reports: No Symptoms Pulmonary: Reports: No Symptoms Cardiovascular: Reports: No Symptoms Gastrointestinal: Reports: No Symptoms Genitourinary: Reports: No Symptoms Musculoskeletal: Reports: No Symptoms Skin: Reports: No Symptoms Neurological: Reports: No Symptoms Psychiatric: Reports: No Symptoms - Patient Data Weight - Most Recent: 204 lb Lab Results Last 24 Hours: Laboratory Results - last 24 hr 03/27/20 03/27/20 03/27/20 Range/Units 00:06 02:23 02:23 WBC 10.10 (4.0-11.0) K/uL RBC 3.64 L (4.30-5.90) M/uL Hgb 10.2 L (12.0-16.0) g/dL Hct 32.5 L (36.0-46.0) % MCV 89.3 (80.0-98.0) fL MCH 28.0 (27.0-32.0) pg MCHC 31.4 (31.0-37.0) g/dL RDW Std Deviation 45.1 (28.0-62.0) fl RDW Coeff of Mery 14 (11.0-15.0) % Plt Count 221 (150-400) K/uL MPV 11.20 (7.40-12.00) fL Nucleated RBC % 0.2 /100WBC Nucleated RBCs # 0 K/uL COVID-19 (ANTONIO) NEGATIVE (NEGATIVE) Blood Type O POSITIVE Antibody Screen NEGATIVE Crossmatch 03/27/20 Range/Units 02:23 WBC (4.0-11.0) K/uL RBC (4.30-5.90) M/uL Hgb (12.0-16.0) g/dL Hct (36.0-46.0) % MCV (80.0-98.0) fL MCH (27.0-32.0) pg MCHC (31.0-37.0) g/dL RDW Std Deviation (28.0-62.0) fl RDW Coeff of Mery (11.0-15.0) % Plt Count (150-400) K/uL MPV (7.40-12.00) fL Nucleated RBC % /100WBC Nucleated RBCs # K/uL COVID-19 (ANTONIO) (NEGATIVE) Blood Type Antibody Screen Crossmatch See Detail Med Orders - Current: Current Medications Carboprost Tromethamine (Hemabate Ds) 250 mcg IM ASDIRECTED PRN PRN Reason: Post Hemorrhage Lactated Ringer's (Ringers, Lactated) 1,000 mls @ 150 mls/hr IV ASDIRECTED ELIZABETH Last Admin: 03/27/20 03:17 Dose: 999 mls/hr Documented by: Oxytocin/Sodium Chloride (Oxytocin 30 Unit/500 Ml-Ns) 30 unit in 500 mls @ 999 mls/hr IV TITRATE ELIZABETH Tranexamic Acid 1,000 mg/ (Sodium Chloride) 110 mls @ 660 mls/hr IV ONETIME PRN PRN Reason: Bleeding Oxytocin/Sodium Chloride (Oxytocin 30 Unit/500 Ml-Ns) 30 unit in 500 mls @ 2 mls/hr IV TITRATE [facility]; Protocol Lidocaine HCl (Xylocaine 1%) 50 ml INJECT ONETIME PRN PRN Reason: Laceration repair Methylergonovine Maleate (Methergine) 0.2 mg IM ASDIRECTED PRN PRN Reason: Post Hemorrhage Misoprostol (Cytotec) 200 mcg PO ONETIME PRN PRN Reason: Post Hemorrhage Misoprostol (Cytotec) 25 mcg VAG ONETIME PRN PRN Reason: Cervical Ripening Last Admin: 03/27/20 02:39 Dose: 25 mcg Documented by: Misoprostol (Cytotec) 25 mcg PO ONETIME PRN PRN Reason: Cervical Ripening Last Admin: 03/27/20 02:35 Dose: 25 mcg Documented by: Nalbuphine HCl (Nubain) 10 mg IVPUSH Q1H PRN PRN Reason: Pain (severe 7-10) Sodium Chloride (Saline Flush) 10 ml FLUSH ASDIRECTED PRN PRN Reason: Keep Vein Open Sodium Chloride (Saline Flush) 2.5 ml FLUSH ASDIRECTED PRN PRN Reason: Keep Vein Open Sodium Chloride (Normal Saline) 10 ml IV ASDIRECTED PRN PRN Reason: IV Use Sterile Water (Sterile Water For Irrigation) 1,000 ml IRR ASDIRECTED PRN PRN Reason: delivery Terbutaline Sulfate (Brethine) 0.25 mg SUBCUT ASDIRECTED PRN PRN Reason: Tacysystole Discontinued Medications Fentanyl/Bupivacaine HCl (Fentanyl/Bupivacaine/Ns 2 Mcg-0.125% 250 Ml) Confirm Administered Dose 250 mls @ as directed .ROUTE .[facility]-MED ONE Stop: 03/27/20 03:44 - Exam General: Alert, Oriented, Cooperative, No Acute Distress Lungs: Normal Respiratory Effort Cardiovascular: Regular Rate, Regular Rhythm GI/Abdominal Exam: Soft, Non-Tender (Female) Exam: Normal External Exam Back Exam: Normal Inspection Extremities: Normal Inspection, Normal Capillary Refill Skin: Warm, Dry, Intact Neurological: No New Focal Deficit, Normal Speech, Normal Tone Psy/Mental Status: Alert, Normal Affect, Normal Mood - Problem List & Annotations (1) Supervision of normal IUP (intrauterine ) in multigravida SNOMED Code(s): 036771154, 241246631, 802702623 Code(s): Z34.80 - ENCOUNTER FOR SUPRVSN OF NORMAL , UNSP TRIMESTER Status: Acute Priority: High Current Visit: Yes Qualifiers: Trimester: third trimester Qualified Code(s): Z34.83 - Encounter for supervision of other normal , third trimester (2) Lupus SNOMED Code(s): 923653399 Code(s): M32.9 - SYSTEMIC LUPUS ERYTHEMATOSUS, UNSPECIFIED Status: Acute Priority: High Current Visit: No - Problem List Review Problem List Initiated/Reviewed/Updated: Yes - My Orders Last 24 Hours: My Active Orders 03/27/20 00:32 Non Stress Test [RC] PER UNIT ROUTINE Up ad Gely [RC] ASDIRECTED Vaginal Exam [RC] Click to Edit Vital Signs [RC] PER UNIT ROUTINE Resuscitation Status Routine 03/27/20 00:45 Patient Status [ADT] Routine Heart Tones [RC] CONTINUOUS May Shower [RC] ASDIRECTED Notify Provider [RC] PRN Peripheral IV Care [RC] PRN Carboprost Tromethamine [Hemabate DS] 250 mcg IM ASDIRECTED PRN Lactated Ringers [Ringers, Lactated] 1,000 ml IV ASDIRECTED Lidocaine 1% [Xylocaine 1%] 50 ml INJECT ONETIME PRN Methylergonovine [Methergine] 0.2 mg IM ASDIRECTED PRN Nalbuphine [Nubain] 10 mg IVPUSH Q1H PRN Oxytocin/0.9 % Sodium Chloride [Oxytocin 30 Unit/500 ML-NS] 30 unit in 500 ml IV TITRATE Sodium Chloride 0.9% [Normal Saline] 10 ml IV ASDIRECTED PRN Sodium Chloride 0.9% [Saline Flush] 10 ml FLUSH ASDIRECTED PRN Sodium Chloride 0.9% [Saline Flush] 2.5 ml FLUSH ASDIRECTED PRN Tranexamic Acid [Cyklokapron] 1,000 mg Sodium Chloride 0.9% [Normal Saline] 100 ml IV ONETIME Water For Irrigation,Sterile [Sterile Water for Irrigation] 1,000 ml IRR ASDIRECTED PRN miSOPROStoL [Cytotec] 200 mcg PO ONETIME PRN Scalp Electrode [WOMSER] Per Unit Routine Peripheral IV Insertion Adult [OM.PC] Routine 03/27/20 02:12 Transfuse PRBC [Transfuse Red Blood Cells] [COMM] Routine 03/27/20 02:19 Bedrest Bathroom Privileges [RC] ASDIRECTED Communication Order [RC] ASDIRECTED Communication Order [RC] ASDIRECTED Communication Order [RC] ASDIRECTED Notify Provider [RC] PRN Notify Provider [RC] PRN Notify Provider [RC] STAT Oxygen Therapy [RC] ASDIRECTED Vaginal Exam [RC] PRN Terbutaline [Brethine] 0.25 mg SUBCUT ASDIRECTED PRN 03/27/20 02:30 Oxytocin/0.9 % Sodium Chloride [Oxytocin 30 Unit/500 ML-NS] 30 unit in 500 ml IV TITRATE miSOPROStoL [Cytotec] 25 mcg PO ONETIME PRN miSOPROStoL [Cytotec] 25 mcg VAG ONETIME PRN Medication Administration Instruction [OM.PC] Q3H - Plan Plan:: Admit A: 34 yo multip (/) with LUPUS at 37 1/7 ([place]: 04/16/20) presenting to L&D with SROM at 2200; grossly ruptured, leaking large amount of clear odorless fluid; not anderson on arrival; SVE by nurse noted external os 4cm, internal os 1 cm, 50%/-3/soft/posterior; O+, RI, GBS-; handheld bedside u ltrasound by this CNM noted cephalic presentation P: Admit, induction of labor, cytotec x1 dose (PO & PV), anticipate , epidural PRN, Dr. Crum updated Delivery A: viable male; epidural for pain relief; nuchal x1, baby to mom's abdomen [id number] for assessment; placenta delivered grossly intact, dewitt; 3VC; EBL 150 mL; pitocin to IVF; perineum intact; APGARs 8/9; weight: 7 lb 1 oz (3200 g); mom and baby left in stable condition with nurse at bedside for assessment P: Routine plan of care; Dr. Crum updated.
[2020-03-27] MEDS ORDERED: Ibuprofen 400 MG Tab PO PRN (07:22)
[2020-03-27] MEDS ORDERED: Witch Hazel Medicated Pads 40/Jar TOP PRN (07:22)
[2020-03-27] MEDS ORDERED: Lanolin 100% Cream 7 GM Tube TOP PRN (07:22)
[2020-03-27] MEDS ORDERED: Bisacodyl 10 MG Supp RECTAL PRN (07:22)
[2020-03-27] MEDS ORDERED: Acetaminophen 500 MG Tab PO PRN (07:22)
[2020-03-27] MEDS ORDERED: Ibuprofen 800 MG Tab PO PRN (07:22)
[2020-03-27] MEDS ORDERED: Docusate Sodium 100 MG Cap PO PRN (07:22)
[2020-03-27] MEDS ORDERED: Benzocaine/Menthol 20%-0.5% Spray 78 GM Cannister TOP PRN (07:22)
[2020-03-27] MEDS ORDERED: oxyCODONE 5 MG Tab PO PRN (07:22)
--- NOTE | 2020-03-27 07:29 | PCM48HPAN ---
Post Anesthesia Note - EVALUATION WITHIN 48HRS OF ANESTHETIC Vital Signs in Normal Range: Yes Patient Participated in Evaluation: Yes Respiratory Function Stable: Yes Airway Patent: Yes Cardiovascular Function Stable: Yes Hydration Status Stable: Yes Pain Control Satisfactory: Yes Nausea and Vomiting Control Satisfactory: Yes Mental Status Recovered: Yes - COMMENTS/OBSERVATIONS Free Text/Narrative:: Did well. No problems post.
[2020-03-27] MEDS: Acetaminophen 500 MG Tab PO PRN ×4 (07:50→22:10)
[2020-03-27] MEDS ORDERED: Ondansetron 4 MG/2 ML SDV IVPUSH ONE (09:12)
[2020-03-27] MEDS: Hydroxychloroquine 200 MG Tab PO SCH ×2 (14:23→21:11)
[2020-03-27] MEDS ORDERED: predniSONE 1 MG Tab PO SCH (21:00)
[2020-03-28] MEDS: Acetaminophen 500 MG Tab PO PRN (07:51)
[2020-03-28] MEDS ORDERED: predniSONE 5 MG Tab PO SCH (08:00)
--- NOTE | 2020-03-28 09:16 | PCM.DCSUM1 ---
Discharge Summary - Hospital Course Free Text/Narrative:: Discharge home with infant. Follow up 6 weeks for Diagnosis: Stroke: No Modified [place] Scale: No Symptoms at All Modified [place] Scale Score: 0 - Discharge Data Discharge Date: 03/28/20 Discharge Disposition: Home, Self-Care 01 Condition: Good - Referral to Home Health Primary Care Physician: PCP None - Discharge Diagnosis/Problem(s) (1) Supervision of normal IUP (intrauterine ) in multigravida SNOMED Code(s): 973885446, 738411289, 420229789 ICD Code: Z34.80 - ENCOUNTER FOR SUPRVSN OF NORMAL , UNSP TRIMESTER Status: Acute Priority: High Current Visit: Yes Qualifiers: Trimester: third trimester Qualified Code(s): Z34.83 - Encounter for supervision of other normal , third trimester (2) Lupus SNOMED Code(s): 492807145 ICD Code: M32.9 - SYSTEMIC LUPUS ERYTHEMATOSUS, UNSPECIFIED Status: Acute Priority: High Current Visit: No (3) Vaginal delivery SNOMED Code(s): 677161714 ICD Code: O80 - ENCOUNTER FOR FULL-TERM UNCOMPLICATED DELIVERY Status: Acute Priority: High Current Visit: No - Patient Instructions Diet: Usual Diet as Tolerated Activity: As Tolerated, No Strenuous Activities, Rest and Relax Today Driving: May Drive Today Showering/Bathing: May Shower Notify Provider of: Fever, Increased Pain, Swelling and Redness, Nausea and/or Vomiting Other/Special Instructions: Discharge home with . Follow up 6 weeks for - Discharge Plan *PRESCRIPTION DRUG MONITORING PROGRAM REVIEWED*: Not Applicable *COPY OF PRESCRIPTION DRUG MONITORING REPORT IN PATIENT OSEAS: Not Applicable Home Medications: Home Meds Fluticasone/Salmeterol [Advair Diskus 250-50] 2 puff INH BID 01/10/17 [History] predniSONE [Prednisone] 5 mg PO QAM 01/10/17 [History] Cetirizine [ZyrTEC] 10 mg PO DAILY PRN 01/09/18 [History] Hydroxychloroquine Sulfate [Plaquenil] 200 mg PO BID 04/27/18 [History] predniSONE 2.5 mg PO QPM 03/31/19 [History] Hydrocortisone/Aloe Vera [Cortizone-10 1% Creme] 28 gm TP DAILY 07/09/20 [History] Oxygen Therapy Mode: Room Air Referrals: [facility] [Outside] Jesus Crum MD [Physician] - 05/09/20 3:15 pm - Discharge Summary/Plan Comment DC Time >30 min.: Yes - General Info Date of Service: 03/28/20 Admission Dx/Problem (Free Text: Patient Status Order with Admit Dx/Problem 03/27/20 00:45 Patient Status [ADT] Routine Admission Diagnosis/Problem Admission Diagnosis/Problem 03/27/20 02:08 34 yo multip (/10/07/) with LUPUS at 37 1/7 ([place]: 04/16/20) presenting to L&D with SROM at 2200; grossly ruptured, leaking large amount of clear odorless fluid; not anderson on arrival; SVE by nurse noted external os 4cm, internal os 1 cm, 50%/-3/soft/posterior; O+, RI, GBS-; handheld bedside ultrasound by this CNM noted cephalic presentation Functional Status: Reports: Pain Controlled, Tolerating Diet, Ambulating, Urinating - Review of Systems General: Reports: No Symptoms HEENT: Reports: No Symptoms Pulmonary: Reports: No Symptoms Cardiovascular: Reports: No Symptoms Gastrointestinal: Reports: No Symptoms Genitourinary: Reports: No Symptoms Musculoskeletal: Reports: No Symptoms Skin: Reports: No Symptoms Neurological: Reports: No Symptoms Psychiatric: Reports: No Symptoms - Patient Data Vitals - Most Recent: Last Vital Signs Temp 36.6 C 03/28/20 05:00 Pulse 74 03/28/20 05:00 Resp 16 03/28/20 05:00 BP 110/59 L 03/28/20 05:00 Pulse Ox 96 03/28/20 05:00 Weight - Most Recent: 92.533 kg Lab Results - Last 24 hrs: Laboratory Results - last 24 hr 03/28/20 Range/Units 05:55 Hgb 10.0 L (12.0-16.0) g/dL Hct 31.8 L (36.0-46.0) % Med Orders - Current: Current Medications Acetaminophen (Tylenol Extra Strength) 500 mg PO Q4H PRN PRN Reason: Pain Acetaminophen (Tylenol Extra Strength) 1,000 mg PO Q4H PRN PRN Reason: Pain Last Admin: 03/28/20 07:51 Dose: 1,000 mg Documented by: Benzocaine/Menthol (Dermoplast Pain Relief 20%-0.5% [place]) 78 gm TOP ASDIRECTED PRN PRN Reason: Perineal Comfort Measure Bisacodyl (Dulcolax) 10 mg RECTAL ONETIME PRN PRN Reason: Constipation Docusate Sodium (Colace) 100 mg PO BID PRN PRN Reason: Constipation Last Admin: 03/27/20 18:26 Dose: 100 mg Documented by: Emollient Ointment (Lansinoh Hpa) 0 gm TOP ASDIRECTED PRN PRN Reason: Sore Nipples Ibuprofen (Motrin) 400 mg PO Q4H PRN PRN Reason: Pain Ibuprofen (Motrin) 800 mg PO Q6H PRN PRN Reason: Pain Oxycodone HCl (Oxycodone) 5 mg PO Q2H PRN PRN Reason: Pain Hydroxychloroquine (200 Mg Tab) 200 each PO BID [facility] Last Admin: 03/27/20 21:11 Dose: 200 each Documented by: Prednisone 5 Mg Tab 5 each PO WITHBREAKFAST [facility] Last Admin: 03/27/20 14:24 Dose: 5 each Documented by: Prednisone 1 Mg Tab 2.5 each PO BEDTIME [facility] Last Admin: 03/27/20 21:12 Dose: 2.5 each Documented [facility]: [facility] 1 pad TOP ASDIRECTED PRN PRN Reason: comfort care Discontinued Medications Carboprost Tromethamine (Hemabate Ds) 250 mcg IM ASDIRECTED PRN PRN Reason: Post Hemorrhage Lactated Ringer's (Ringers, Lactated) 1,000 mls @ 150 mls/hr IV ASDIRECTED [facility] Last Admin: 03/27/20 03:17 Dose: 999 mls/hr Documented by: Oxytocin/Sodium Chloride (Oxytocin 30 Unit/500 Ml-Ns) 30 unit in 500 mls @ 999 mls/hr IV TITRATE [facility] Tranexamic Acid 1,000 mg/ (Sodium Chloride) 110 mls @ 660 mls/hr IV ONETIME PRN PRN Reason: Bleeding Oxytocin/Sodium Chloride (Oxytocin 30 Unit/500 Ml-Ns) 30 unit in 500 mls @ 2 mls/hr IV TITRATE [facility]; Protocol Fentanyl/Bupivacaine HCl (Fentanyl/Bupivacaine/Ns 2 Mcg-0.125% 250 Ml) Confirm Administered Dose 250 mls @ as directed .ROUTE .STK-MED ONE Stop: 03/27/20 03:44 Last Admin: 03/27/20 21:52 Dose: Not Given Documented by: Lidocaine HCl (Xylocaine 1%) 50 ml INJECT ONETIME PRN PRN Reason: Laceration repair Methylergonovine Maleate (Methergine) 0.2 mg IM ASDIRECTED PRN PRN Reason: Post Hemorrhage Misoprostol (Cytotec) 200 mcg PO ONETIME PRN PRN Reason: Post Hemorrhage Misoprostol (Cytotec) 25 mcg VAG ONETIME PRN PRN Reason: Cervical Ripening Last Admin: 03/27/20 02:39 Dose: 25 mcg Documented by: Misoprostol (Cytotec) 25 mcg PO ONETIME PRN PRN Reason: Cervical Ripening Last Admin: 03/27/20 02:35 Dose: 25 mcg Documented by: Nalbuphine HCl (Nubain) 10 mg IVPUSH Q1H PRN PRN Reason: Pain (severe 7-10) Ondansetron HCl (Zofran) 4 mg IVPUSH ONETIME ONE Stop: 03/27/20 09:13 Last Admin: 03/27/20 09:25 Dose: 4 mg Documented by: Sodium Chloride (Saline Flush) 10 ml FLUSH ASDIRECTED PRN PRN Reason: Keep Vein Open Sodium Chloride (Saline Flush) 2.5 ml FLUSH ASDIRECTED PRN PRN Reason: Keep Vein Open Sodium Chloride (Normal Saline) 10 ml IV ASDIRECTED PRN PRN Reason: IV Use Sterile Water (Sterile Water For Irrigation) 1,000 ml IRR ASDIRECTED PRN PRN Reason: delivery Terbutaline Sulfate (Brethine) 0.25 mg SUBCUT ASDIRECTED PRN PRN Reason: Tacysystole - Exam General: Reports: Alert, Oriented, Cooperative, No Acute Distress Lungs: Reports: Clear to Auscultation, Normal Respiratory Effort Cardiovascular: Reports: Regular Rate, Regular Rhythm, No Murmurs, Irregular Rhythm (Female) Exam: Deferred Rectal (Female) Exam: Deferred Back Exam: Reports: Normal Inspection, Full Range of Motion Extremities: Normal Inspection, Normal Range of Motion, Non-Tender, No Pedal Edema Skin: Reports: Warm, Dry, Intact Neurological: Reports: No New Focal Deficit, Normal Speech, Normal Tone, Strength Equal Bilateral, Sensation Intact Psy/Mental Status: Reports: Alert, Normal Affect, Normal Mood
[2020-03-28 10:41] VITALS: BP 119/65; PULSE 85
== END 2020-03-28 09:55 | disposition home or self-care (01) | DRG 807 ==
LOC: MW.OBCHECK 23:43 → MW.OB 23:43 → MW.OBCHECK 03-27 00:45 → MW.OB 03-27 00:45 → OBSVTOIN 03-27 06:49 → MW.OB 03-27 12:18
PROVIDERS: ADMIT Obstetrics & Gynecology; ATTEND Obstetrics & Gynecology
PROC: 10E0XZZ Delivery of Products of Conception, External Approach (ICD-10-PCS; principal; 2020-03-27)
PROC: 3E0R3BZ Introduction of Anesthetic Agent into Spinal Canal, Percutaneous Approach (ICD-10-PCS; 2020-03-27)
DX: O99.72 Diseases of the skin and subcutaneous tissue complicating childbirth (principal); Z37.0 Single live birth; Z3A.37 37 weeks gestation of pregnancy; O69.81X0 Labor and delivery complicated by cord around neck, without compression, not applicable or unspecified; L93.0 Discoid lupus erythematosus; Z87.891 Personal history of nicotine dependence; Z11.59 Encounter for screening for other viral diseases
CPT/HCPCS: 01967; 36415; 51702; 59025; 59409; 85014; 85018; 85027; 86592; 86593; 86850; 86900; 86901; 86902; 86920; 86921; 86922; A9270-GY; J2405; J7120; U0002